=== PATIENT | female | born 1985 | race Caucasian/White ===

== ENCOUNTER 2023-06-13 20:32 | Outpatient (REF) | payer OTHER, SELFPAY ==
[2023-06-19 09:07] LABS: Age Gdln ACOG Testing Note (.); HPV Aptima Negative (Negative); IGP, Aptima HPV, rfx 16/18,45 Note (.)
== END 2023-06-13 20:33 | disposition home or self-care (01) ==
LOC: LAB 20:32
PROVIDERS: Visit Provider Physician Assistant
DX: Z01.419 Encounter for gynecological examination (general) (routine) without abnormal findings (principal)
CPT/HCPCS: 87624; G0145

== ENCOUNTER 2023-08-23 | Outpatient (REF) | payer OTHER, SELFPAY ==
--- OUTSIDE RECORDS SUMMARY | 2023-09-01 08:18 | XMS_ITS | CCD ---
Author Name Unknown Address [address] [place] [address] Organization [facility] Care Team Providers Care Or First Assist Registered Nurse Name Role Phone REGGIE, DR GARCIA Attending Unavailable MISC, DR GUSMAN Primary Care Unavailable KARASIK, DR GARCIA Consulting Unavailable KARASIK, DR GARCIA Admitting Unavailable KARASIK, DR GARCIA Admitting Unavailable KARASIK, DR GARCIA Attending Unavailable MISC, DR GUSMAN Primary Care Unavailable KARASIK, DR GARCIA Consulting Unavailable NELLJOSE Consulting Unavailable RAH PEREZ Consulting Unavailable KARASIK, DR GARCIA Admitting Unavailable KARASIK, DR GARCIA Attending Unavailable KARASIK, DR GARCIA Consulting Unavailable Bertha Guerrero Primary Care Physician MARCELLO HARDEN Attending Unavailable Leeanna Dahl Attending Unavailable VERN LE Attending Unavailable Vern Le Attending Provider [phone] Vern Le Attending Unavailable Vern Le Admitting Unavailable Allergies Allergy Classification Reported Allergen(s) Allergy Type Date of Onset Reaction(s) Facility (1 source) Latex Drug allergy (disorder) [facility] Repository (3 sources) Codeine; Translations: [codeine] Drug Allergy [facility] (3 sources) Penicillin; Translations: [penicillin] Drug Allergy [facility] Medications Current Medications Medication Drug Class(es) Dates Sig (Normalized) Sig (Original) azithromycin 500 mg oral tablet (1 source) Macrolide Antimicrobial Start: 05-29-2023 End: 06-03-2023 take 1 tablet by mouth once daily Zithromax 500 mg oral tablet 500 mg = 1 tab(s), Oral, Daily, X 5 day(s), # 5 tab(s), Refills(s) 0, Pharmacy: [facility] #[id number], 170, cm, 05/29/23 15:13:00 EDT, Height/Length Dosing, 75.8, kg, 05/29/23 15:13:00 EDT, Weight Dosing Start Date: 05/29/23 Stop Date: 06/03/23 Status: Ordered brompheniramine maleate 0.4 mg/ml / dextromethorphan hydrobromide 2 mg/ml / pseudoephedrine hydrochloride 6 mg/ml oral solution (1 source) alpha-Adrenergic Agonist, Uncompetitive K-yhrsti-G-aspartat e Receptor Antagonist, Sigma-1 Agonist Start: 09-21-2022 End: 09-28-2022 take 10 mL by mouth four times daily for cough and congestion Bromfed DM oral syrup 10 mL, Oral, QID for cough and congestion for 7 day(s), 240 mL, Refill(s) 0, [facility] #[id number], 165, cm, 09/21/22 13:09:00 EST, Height/Length Dosing, 76.6, kg, 09/21/22 13:09:00 EST, Weight Dosing Start Date: 09/21/22 Stop Date: 09/28/22 Status: Ordered ibuprofen 800 mg oral tablet (2 sources) Nonsteroidal Anti-inflammatory Drug Start: 12-28-2011 take 1 tablet by mouth three times daily as needed for pain ibuprofen 800 mg Tab 800 mg = 1 tab(s), Oral, TID, PRN for pain, # 30 tab(s), Refills(s) 0 Start Date: 12/28/11 Status: Ordered predniSONE 20 mg oral tablet (1 source) Start: 05-29-2023 End: 06-03-2023 take 1 tablet by mouth once daily predniSONE 20 mg Tab 20 mg = 1 tab(s), Oral, Daily, X 5 day(s), # 5 tab(s), Refills(s) 0, Pharmacy: [facility] #[id number], 170, cm, 05/29/23 15:13:00 EDT, Height/Length Dosing, 75.8, kg, 05/29/23 15:13:00 EDT, Weight Dosing Start Date: 05/29/23 Stop Date: 06/03/23 Status: Ordered SUMAtriptan 25 mg oral tablet (2 sources) Serotonin-1b and Serotonin-1d Receptor Agonist Start: 12-28-2011 take 1 tablet by mouth once daily Imitrex 25 mg Tab 25 mg = 1 tab(s), Oral, Daily, tab(s), Refills(s) 0 Start Date: 12/28/11 Status: Ordered Problems Active Problems Problem Classification Problem Date Documented Date Episodic/Chronic Acute and chronic tonsillitis (2 sources) Acute tonsillitis; Translations: [Acute tonsillitis, unspecified] Onset: 05-29-2023 Episodic Immunizations and screening for infectious disease (1 source) Encounter for screening for human papillomavirus (HPV); Translations: [ENC SCREENING HUMAN PAPILLOMAVIRUS] Onset: 12-15-2021 Episodic Other nutritional; endocrine; and metabolic disorders (1 source) Overweight in adulthood with body mass index of 25 or more but less than 30; Translations: [Body mass index (BMI) 28.0-28.9, adult] Onset: 09-21-2022 Episodic Other screening for suspected conditions (not mental disorders or infectious disease) (6 sources) Encounter for screening for malignant neoplasm of cervix; Translations: [No current problems or disability] Onset: 12-14-2021 Episodic Other upper respiratory infections (3 sources) Common cold; Translations: [Acute nasopharyngitis [common cold]] Onset: 09-21-2022 Episodic Unclassified (1 source) CONTACT W/AND (SUSP) EXPOS COVID-19; Translations: [CONTACT W/AND (SUSP) EXPOS COVID-19] Onset: 12-31-2020 Past or Other Problems Problem Classification Problem Date Documented Date Episodic/Chronic Complication of device; implant or graft (5 sources) Other specified complication of genitourinary prosthetic devices, implants and grafts, initial encounter; Translations: [Other mechanical complication of intrauterine contraceptive device, initial encounter] Onset: 12-28-2020 Episodic Results Test Name Value Interpretation Reference Range Facil [facility] 08-23-2023 L Specimen: [id number] Received: 08/24/23 Status: LAWRENCE Ugarte Num: [id number] Spec Type: Surgical Subm Dr: Vern Le Tissues: A Endometrium - Biopsy (EMB) Procedures: HE/2, Gross/Micro L4 Age/ Patient Sex Location Account Attending Physician Sommer Cerna 37/F LABELL [id number] Vern Le SPEC NUM: [id number] RECD: 08/24/23 STATUS: LAWRENCE UGARTE NUM: [id number] MARÍA: 08/23/23 DR: Vern Le ENTERED: 08/24/[address] [facility] [address]: Eddy,Lab SPEC TYPE: Surgical DEPT: BERT BUTCHER ORDERED: HE/2, Gross/Micro L4 ORDERED: HE/2, Gross/Micro L4 Pathological Diagnosis Endometrium, Curettage: Scanty specimen did not survive processing. Clinical Information Menorrhagia with regular cycles, abnormal uterine bleeding Gross Description Received in formalin labeled with the patient's name, date of and EM BX is scant white to translucent tissue stained with eosin and aggregating 2.0 x 0.6 by less than 0.1 cm. The specimen will questionably survive processing. Entirely submitted in one cassette labeled A1. CPT Codes 21573 ---- ---- Specimen: [id number] Received: 08/24/23 Status: LAWRENCE Ugarte Num: [id number] Spec Type: Surgical Subm Dr: Vern Le Tissues: A Endometrium - Biopsy (EMB) Procedures: HE/2, Gross/Micro L4 ---- Patient: Sommer Cerna [id number] (Continued) ---- Signed (signature on file) Danie Garcia MD 08/27/23 [id number] Family Medicine Office/Clini c Noteon 06-01-2023 Family Medicine Office/Clinic Note Chief Complaint EST sore throat HPI Staff 37 year old female presents with sore throat states she thinks she has strep and it started monday night cold chills sweats and lymph nodes are really tender Review of Systems PHQ Score Initial Depression Screen Score: 0 Physical Exam Vitals & Measurements HR: 80(Peripheral) BP: 130/80 SpO2: 99% HT: 67 in HT: 170 cm WT: 75.8 kg WT: 166.76 lb BMI: 26.23 Assessment/Plan 1. Tonsillitis (J03.90: Acute tonsillitis, unspecified) Ordered: azithromycin, 500 mg = 1 tab(s), Oral, Daily, X 5 day(s), # 5 tab(s), Refills(s) 0, Pharmacy: [facility] #[id number], 170, cm, 05/29/23 15:13:00 EDT, Height/Length Dosing, 75.8, kg, 05/29/23 15:13:00 EDT, Weight Dosing 2. Sore throat (J02.9: Acute pharyngitis, unspecified) Ordered: predniSONE, 20 mg = 1 tab(s), Oral, Daily, X 5 day(s), # 5 tab(s), Refills(s) 0, Pharmacy: [facility] #[id number], 170, cm, 05/29/23 15:13:00 EDT, Height/Length Dosing, 75.8, kg, 05/29/23 15:13:00 EDT, Weight Dosing Follow-up With When Contact Information Cesar KAUFFMAN, MARIOLA Verduzco Additional Instructions: Patient Education Sore Throat, Vqyn-ms-Aqsj Tonsillitis, Jmcs-rh-Dqzk Problem List/Past Medical History Ongoing Sore throat Tonsillitis Historical none Procedure/Surgical History none. Medications ibuprofen 800 mg Tab, 800 mg= 1 tab(s), Oral, TID, PRN, Not taking Imitrex 25 mg Tab, 25 mg= 1 tab(s), Oral, Daily, Not taking predniSONE 20 mg Tab, 20 mg= 1 tab(s), Oral, Daily Zithromax 500 mg oral tablet, 500 mg= 1 tab(s), Oral, Daily Allergies codeine penicillin Social History Tobacco - No Risk, 09/21/2022 Former smoker, quit more than 30 days ago Tobacco Use:. Never Smokeless Tobacco Use:. Cigarettes, 05/29/2023 Current, 01/14/2011 Family History Family history is unknown Immunizations Vaccine Date Status Comments influenza virus vaccine, inactivated - Not Given Patient Refuses SARS-CoV-2 mRNA (tozinameran 5y-11y) vac - Not Given Patient Refuses influenza virus vaccine, inactivated - Not Given Patient Refuses influenza virus vaccine, inactivated 06/09/2010 Recorded This chart was started in error. Initial chart was completed and signed on 05/29/2023. [place] Comment on above: Result Comment: Elec tronically Signed By: DERECK CHILDERS, MARCELLO\.br\Date and Time Signed: 06/01/23 15:45 EDT Family Medicine Office/Clini c Noteon 05-29-2023 Family Medicine Office/Clinic Note Chief Complaint EST sore throat HPI Staff 37 year old female presents with sore throat states she thinks she has strep and it started monday night cold chills sweats and lymph nodes are really tender History of Present Illness Reviewed and agree with above documented HPI by medical technical writer. Portions of this record may have been created with voice recognition artificial intelligence software, specifically Linksify, Scayl and or [email or web address]. Substitutions may have occurred due to the inherent limitations of voice recognition and artificial intelligence software. Patient is a 37-year-old female presented to [facility], for sore throat, enlarged tonsil, patient states symptoms started day night, 2 nights ago after returning home from work, patient states she has had a history of strep throat, and tonsillitis, symptoms are similar to tonsillitis, states no one at home has been positive for strep throat, not worry about COVID-19 she works at a [employer], where they are constantly being tested for COVID-19. Patient states she has negative results. Patient states she enlarged tonsils, more on the left than the right, has been able to eat and drink with some discomfort, has a sense of taste and smell intact without any difficulty swallowing. Patient denies any fevers, chills, nausea or vomiting, headache, dizziness, difficulty swallowing, cough, chest pain, shortness of breath, or weakness. Review of Systems PHQ Score Initial Depression Screen Score: 0 Physical Exam Vitals & Measurements HR: 80(Peripheral) BP: 130/80 SpO2: 99% HT: 67 in HT: 170 cm WT: 75.8 kg WT: 166.76 lb BMI: 26.23 General: Well developed, well nourished, in no acute distress, patient does not appear ill or septic, no respiratory disorders noted. Answers questions appropriately and in complete sentences, and follows commands appropriately. Head: Normocephalic/atraumat ic, no upper respiratory infection is noted. Eyes: Pupils equal, round, and reactive to light. Conjunctivae and sclerae normal, Ears: No deformity or lesion of external ear. Canals and TM appear normal bilaterally. TM?s intact, not inflamed, with normal light reflex. Hearing grossly normal to conversational speech Nose: No deformity, discharge, inflammation, or lesions Mouth: Mucous membranes moist. Normal oropharynx, and posterior pharynx with erythema and exudates, left tonsil larger than right tonsil, exudates, no peritonsillar abscess noted. Neck: Neck supple. No masses or palpable cervical nodes. Trachea midline. Lungs: Normal respiratory effort and clear to auscultation throughout, no wheezing, no rales Extremity: Patient is able to move all 4 extremities equally without pain or weakness. Neurologic: Grossly normal Skin: No rashes, ulcerations, or suspicious lesions Lymph Nodes: no lad Mental Status: alert, active Assessment/Plan 37-year-old female presented to [facility], for left tonsillitis, sore throat, symptoms started a few nights ago, history of tonsillitis strep throat, patient felt not to be swabbed for rapid strep throat, patient did appear ill but not septic, respiratory disorder or difficulty swallowing is noted on examination. Patient was given a prescription for Zithromax and prednisone, instructed take zxpt-pos-cajwaty Tylenol for any body aches, fevers, or headaches. Drink plenty water to stay hydrated. Declined a work excuse note. 1. Tonsillitis (J03.90: Acute tonsillitis, unspecified) See above Ordered: azithromycin, 500 mg = 1 tab(s), Oral, Daily, X 5 day(s), # 5 tab(s), Refills(s) 0, Pharmacy: [facility] #[id number], 170, cm, 05/29/23 15:13:00 EDT, Height/Length Dosing, 75.8, kg, 05/29/23 15:13:00 EDT, Weight Dosing 2. Sore throat (J02.9: Acute pharyngitis, unspecified) See above Ordered: predniSONE, 20 mg = 1 tab(s), Oral, Daily, X 5 day(s), # 5 tab(s), Refills(s) 0, Pharmacy: [facility] #[id number], 170, cm, 05/29/23 15:13:00 EDT, Height/Length Dosing, 75.8, kg, 05/29/23 15:13:00 EDT, Weight Dosing Follow-up With When Contact Information Cesar KAUFFMAN, MARIOLA Verduzco Additional Instructions: Patient Education Sore Throat, Fiqf-nk-Bwzc Tonsillitis, Qivn-iw-Zxyh Problem List/Past Medical History Ongoing Sore throat Tonsillitis Historical none Procedure/Surgical History none. Medications ibuprofen 800 mg Tab, 800 mg= 1 tab(s), Oral, TID, PRN, Not taking Imitrex 25 mg Tab, 25 mg= 1 tab(s), Oral, Daily, Not taking predniSONE 20 mg Tab, 20 mg= 1 tab(s), Oral, Daily Zithromax 500 mg oral tablet, 500 mg= 1 tab(s), Oral, Daily Allergies codeine penicillin Social History Tobacco - No Risk, 09/21/2022 Former smoker, quit more than 30 days ago Tobacco Use:. Never Smokeless Tobacco Use:. Cigarettes, 05/29/2023 Current, 01/14/2011 Family History Family history is unknown Immunizations Vaccine Date Status Comments influenza virus vaccine, inactivated - Not Given Beata (more content not included)... Normal [facility] Comment on above: Result Comment: Elec tronically Signed By: DERECK CHILDERS, MARCELLO\.rosalee\Date and Time Signed: 05/29/23 16:36 EDT Patient Educationon 05-29-20 Patient Education ENT Tonsillitis Tonsillitis is an infection of the throat. Tonsils are tissues in the back of your throat. This infection causes the tonsils to become red, tender, and swollen. What are the causes? Tonsillitis is caused by germs (bacteria or a virus). This condition can also occur when pieces of food and bacteria build up around the tonsils. Tonsillitis that is caused by germs can spread from person to person. What are the signs or symptoms? ? A sore throat. ? Trouble swallowing. ? White patches on the tonsils. ? Swollen tonsils. ? Fever. ? Headache. ? Tiredness. ? Not feeling hungry. ? Snoring during sleep when you did not snore before. ? Foul-smelling, yellowish-white pieces of material that you cough up or spit out. These can cause bad breath. How is this treated? ? Medicines. These can be given to treat pain, swelling, or fever. They can also be given to kill bacteria. ? Surgery to take out the tonsils. This is done if you have very bad infections that do not go away. Follow these instructions at home: Medicines ? Take gmou-umr-mohdnle and prescription medicines only as told by your doctor. ? If you were prescribed an antibiotic medicine, take it as told by your doctor. Do not stop taking the antibiotic even if you start to feel better. Eating and drinking ? Drink enough fluid to keep your pee (urine) pale yellow. ? While your throat is sore, eat soft or liquid foods, such as: ? Soup. ? Sherbet. ? Soft, warm cereals, such as oatmeal or hot wheat cereal. ? Drink warm fluids. ? Eat frozen ice pops. General instructions ? Rest as much as you can, and get plenty of sleep. ? Rinse your mouth often with salt water. ? To make salt water, dissolve ??1 tsp (3?6 g) of salt in 1 cup (237 mL) of warm water. ? Do not swallow the salt water. ? Wash your hands often with soap and water for at least 20 seconds. If there is no soap and water, use hand seo executive. ? Do not share cups, bottles, or other utensils until your symptoms are gone. ? Do not smoke or use any products that contain nicotine or tobacco. If you need help quitting, ask your doctor. ? Keep all follow-up visits. Contact a doctor if: ? You have large, tender lumps in your neck that are new. ? You have a fever that does not go away after 2?3 days. ? You have a rash. ? You cough up green, yellow-brown, or bloody fluid. ? You cannot swallow liquids or food for 24 hours. ? Only one of your tonsils is swollen. Get help right away if: ? You have any new symptoms such as: ? Vomiting. ? Very bad headache. ? Stiff neck. ? Chest pain. ? Trouble breathing or swallowing. ? You have very bad throat pain, and you also have drooling or voice changes. ? You have very bad pain that is not helped by medicine. ? You cannot fully open your mouth. ? You have redness, swelling, or very bad pain anywhere in your neck. Summary ? Tonsillitis is an infection of the throat. It causes your tonsils to be red, tender, and swollen. ? While your throat is sore, eat soft or liquid foods. ? Rinse your mouth often with salt water. ? Do not share cups, bottles, or other utensils until your symptoms are gone. This information is not intended to replace advice given to you by your health care provider. Make sure you discuss any questions you have with your health care provider. Document Revised: 12/16/2021 Document Reviewed: 12/16/2021 [employer] Patient Education ? 2022 [employer] Infectious Disease Sore Throat When you have a sore throat, your throat may feel: ? Tender. ? Burning. ? Irritated. ? Scratchy. ? Painful when you swallow. ? Painful when you talk. Many things can cause a sore throat, such as: ? An infection. ? Allergies. ? Dry air. ? Smoke or pollution. ? Radiation treatment for cancer. ? Gastroesophageal reflux disease (GERD). ? A tumor. A sore throat can be the first sign of another sickness. It can happen with other problems, like: ? Coughing. ? Sneezing. ? Fever. ? Swelling of the glands in the neck. Most sore throats go away without treatment. Follow these instructions at home: Medicines ? Take snyk-uxn-hjxdbgq and prescription medicines only as told by your doctor. ? Children often get sore throats. Do not give your child aspirin. ? Use throat sprays to soothe your throat as told by your health care provider. Managing pain To help with pain: ? Sip warm liquids, such as broth, herbal tea, or warm water. ? Eat or drink cold or frozen liquids, such as frozen ice pops. ? Rinse your mouth (gargle) with a salt water mixture 3?4 times a day or as needed. ? To make salt water, dissolve ??1 tsp (3?6 g) of salt in 1 cup (237 mL) of warm water. ? Do not swallow this mixture. ? Suck on hard candy or throat lozenges. ? Put a cool-mist humidifier in your bedroom at night. ? (more content not included)... Normal [facility] Ambulatory Visit Summaryon 0 09-21-2022 Ambulatory Visit Summary SOMMER CERNA Alphonse :1985 Visit Date:09/21/2022 Ambulatory Visit Instructions Your Diagnosis Acute nasopharyngitis BMI 28.0-28.9,adult Sore throat Your Care Team Attending Physician - Nabila DUBON, ISI, Leeanna Abbott Primary Care Physician - Bertha Guerrero MD This Is Your Medications List brompheniramine/dextro methorphan/PSE (Bromfed DM oral syrup) Contact prescribing physician if questions or concerns ibuprofen (ibuprofen 800 mg Tab) sumatriptan (Imitrex 25 mg Tab) Procedures Performed none. Discharge Vitals Temperature (Oral) 36.9 ?C Heart Rate (Peripheral) 87 Blood Pressure 136/86 Height 165 cm Height 65 in Weight 76.6 kg Weight 168.52 lb BMI 28.14 What to do next You Need to Schedule the Following Appointments Follow Up with Cesar KAUFFMAN, MARIOLA Verduzco When: Medications What How Much When Why Instructions New brompheniramine/ dextromethorphan/ PSE (Bromfed DM oral syrup) 10 Milliliter By Mouth 4 times a day as needed for for cough and congestion Acute nasopharyngitis Duration: 7 Days Pickup at [facility] #[id number] Unchanged ibuprofen (ibuprofen 800 mg Tab) 1 Tablets By Mouth 3 times a day as needed for for pain Contact prescribing physician if questions or concerns Unchanged sumatriptan (Imitrex 25 mg Tab) 1 Tablets By Mouth Every day Contact prescribing physician if questions or concerns Pharmacy Information [facility] #[id number]: [address], [place] [phone] Medications and Immunizations Administered Not Given influenza virus vaccine, inactivated, Patient Refuses Allergies codeine penicillin Problems Historical - Any problem that you are no longer receiving treatment for. none Education Materials Upper Respiratory Infection, Adult An upper respiratory infection (URI) is a common viral infection of the nose, throat, and upper air passages that lead to the lungs. The most common type of URI is the common cold. URIs usually get better on their own, without medical treatment. What are the causes? A URI is caused by a virus. You may catch a virus by: ? Breathing in droplets from an infected person's cough or sneeze. ? Touching something that has been exposed to the virus (contaminated) and then touching your mouth, nose, or eyes. What increases the risk? You are more likely to get a URI if: ? You are very young or very old. ? It is alison or winter. ? You have close contact with others, such as at a daycare, school, or health care facility. ? You smoke. ? You have long-term (chronic) heart or lung disease. ? You have a weakened disease-fighting (immune) system. ? You have nasal allergies or asthma. ? You are experiencing a lot of stress. ? You work in an area that has poor air circulation. ? You have poor nutrition. What are the signs or symptoms? A URI usually involves some of the following symptoms: ? Runny or stuffy (congested) nose. ? Sneezing. ? Cough. ? Sore throat. ? Headache. ? Fatigue. ? Fever. ? Loss of appetite. ? Pain in your forehead, behind your eyes, and over your cheekbones (sinus pain). ? Muscle aches. ? Redness or irritation of the eyes. ? Pressure in the ears or face. How is this diagnosed? This condition may be diagnosed based on your medical history and symptoms, and a physical exam. Your health care provider may use a cotton swab to take a mucus sample from your nose (nasal swab). This sample can be tested to determine what virus is causing the illness. How is this treated? URIs usually get better on their own within 7?10 days. You can take steps at home to relieve your symptoms. Medicines cannot cure URIs, but your health care provider may recommend certain medicines to help relieve symptoms, such as: ? Lfci-ceb-xfoatym cold medicines. ? Cough suppressants. Coughing is a type of defense against infection that helps to clear the respiratory system, so take these medicines only as recommended by your health care provider. ? Fever-reducing medicines. Follow these instructions at home: Activity ? Rest as needed. ? If you have a fever, stay home from work or school until your fever is gone or until your health care provider says you are no longer contagious. Your health care provider may have you wear a face mask to prevent your infection from spreading. Relieving symptoms ? Gargle with a salt-water mixture 3?4 times a day or as needed. To make a salt-water mixture, completely dissolve ??1 tsp of salt in 1 cup of warm water. ? Use a cool-mist humidifier to add moisture to the air. This can help you breathe more easily. Eating and drinking ? Drink enough fluid to keep your urine pale yellow. ? Eat soups and other clear broths. General instructions ? Take gpmt-rpr-xgbbbwh and prescription medicines only (more content not included)... 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 Symptoms started- Monday, x 5 days Headache- no Body aches- yes fatigue - yes Earache- yes bilat Runny/stuffy nose- yes Problem with Smell- no Problem with Taste-no Sore throat- yes, PND, worse throughout the day Cough- yes, moist, non productive Scratchy tickly throat- yes Chest symptoms- no SOB- no Lung Hx asthma, bronchitis, chest colds- no Fever/chills- yes- 100.4, yesterday Nausea/ vomiting- no GI Symptoms- no appetite- decreased due to pain tolerating fluid urinating normal amounts Sick/ COVID-19- yes kids were sick - no strep, lasted 3 days Treatments- Mucinex - minimal improvement History of Present Illness I have reviewed and verified the staff HPI to be accurate for this encounter. Review of Systems PHQ Score Initial Depression Screen Score: 0 Physical Exam Vitals & Measurements T: 36.9 ?C(Oral) HR: 87(Peripheral) BP: 136/86 SpO2: 97% HT: 65 in HT: 165 cm WT: 76.6 kg WT: 168.52 lb BMI: 28.14 General: Well developed, well nourished, in no acute distress Ears: No deformity or lesion of external ear. Canals and TM appear normal bilaterally. TM?s intact, not inflamed, with normal light reflex. Hearing grossly normal to conversational speech Nose: mild nasal mucosa inflammation and edema Mouth: Mucous membranes moist. Normal oropharynx, and posterior pharynx without lesions or exudates. Tongue normal mild erythema of the posterior pharynx, tonsils 1+. Neck: shotty anterior cervical nodes bilaterally Lungs: Normal respiratory effort and clear to auscultation Cardio: regular rate and rhythm, no murmur Mental Status: Alert and oriented x3. Normal mood and affect Assessment/Plan 1. Acute nasopharyngitis (J00: Acute nasopharyngitis [common cold]) Rapid strep testing in office negative. Discussed exam and hx are consistent with viral illness. Advised of typical duration. Discussed antibiotics unfortunately do not treat viral illnesses, it will take time to run course- usually 7-14 days. Fluids/rest encouraged, PRN tylenol/ibuprofen for any pain. May use Bromfed for symptomatic tx. Follow up with PCP if not improving over next 5-7 days or significantly worsening symptoms. Patient verbalized understanding of tx plan. Ordered: brompheniramine/dextro methorphan/PSE, 10 mL, Oral, QID for cough and congestion for 7 day(s), 240 mL, Refill(s) 0, [id number], 165, cm, 09/21/22 13:09:00 EST, Height/Length Dosing, 76.6, kg, 09/21/22 13:09:00 EST, Weight Dosing 2. BMI 28.0-28.9,adult (Z68.28: Body mass index [BMI] 28.0-28.9, adult) The standard range for ages 18 and older is >=18.5 and < 25 kg/m2. Your BMI today was above this range, this falls in the overweight to obese category and there are medical benefits to weight loss. We can offer counselling, referral, and/or medical support in addressing this problem. Your BMI and weight management will be followed at subsequent visits. Ordered: Body Mass Index (BMI) documented 3008F Sore throat (J02.9: Acute pharyngitis, unspecified) Ordered: Rapid Strep POC 34490 Follow-up With When Contact Information Cesar KAUFFMAN, MARIOLA Verduzco Additional Instructions: Patient Education Upper Respiratory Infection, Adult BMI for Adults Problem List/Past Medical History Ongoing No qualifying data Historical none Procedure/Surgical History none. Medications Bromfed DM oral syrup, 10 mL, Oral, QID, PRN ibuprofen 800 mg Tab, 800 mg= 1 tab(s), Oral, TID, PRN, Not taking Imitrex 25 mg Tab, 25 mg= 1 tab(s), Oral, Daily, Not taking Allergies codeine penicillin Social History Tobacco - No Risk, 09/21/2022 Former smoker, quit more than 30 days ago Tobacco Use:. Never Smokeless Tobacco Use:. Cigarettes, 09/21/2022 Current, 01/14/2011 Family History Family history is unknown Immunizations Vaccine Date Status Comments influenza virus vaccine, inactivated - Not Given Patient Refuses Lab Results Ambulatory Point of Care Results Rapid Strep POC Result: Negative (09/21/22 13:35:00) Normal [facility] Comment on above: Result Comment: Elec tronically Signed By: ISI Dahl APRN, [place] X\.rosalee\Date and Time Signed: 09/21/22 13:39 EST Patient Educationon 09-21-19 Patient Education Infectious Disease Upper Respiratory Infection, Adult An upper respiratory infection (URI) is a common viral infection of the nose, throat, and upper air passages that lead to the lungs. The most common type of URI is the common cold. URIs usually get better on their own, without medical treatment. What are the causes? A URI is caused by a virus. You may catch a virus by: ? Breathing in droplets from an infected person's cough or sneeze. ? Touching something that has been exposed to the virus (contaminated) and then touching your mouth, nose, or eyes. What increases the risk? You are more likely to get a URI if: ? You are very young or very old. ? It is alison or winter. ? You have close contact with others, such as at a daycare, school, or health care facility. ? You smoke. ? You have long-term (chronic) heart or lung disease. ? You have a weakened disease-fighting (immune) system. ? You have nasal allergies or asthma. ? You are experiencing a lot of stress. ? You work in an area that has poor air circulation. ? You have poor nutrition. What are the signs or symptoms? A URI usually involves some of the following symptoms: ? Runny or stuffy (congested) nose. ? Sneezing. ? Cough. ? Sore throat. ? Headache. ? Fatigue. ? Fever. ? Loss of appetite. ? Pain in your forehead, behind your eyes, and over your cheekbones (sinus pain). ? Muscle aches. ? Redness or irritation of the eyes. ? Pressure in the ears or face. How is this diagnosed? This condition may be diagnosed based on your medical history and symptoms, and a physical exam. Your health care provider may use a cotton swab to take a mucus sample from your nose (nasal swab). This sample can be tested to determine what virus is causing the illness. How is this treated? URIs usually get better on their own within 7?10 days. You can take steps at home to relieve your symptoms. Medicines cannot cure URIs, but your health care provider may recommend certain medicines to help relieve symptoms, such as: ? Vbux-ggq-iieokxk cold medicines. ? Cough suppressants. Coughing is a type of defense against infection that helps to clear the respiratory system, so take these medicines only as recommended by your health care provider. ? Fever-reducing medicines. Follow these instructions at home: Activity ? Rest as needed. ? If you have a fever, stay home from work or school until your fever is gone or until your health care provider says you are no longer contagious. Your health care provider may have you wear a face mask to prevent your infection from spreading. Relieving symptoms ? Gargle with a salt-water mixture 3?4 times a day or as needed. To make a salt-water mixture, completely dissolve ??1 tsp of salt in 1 cup of warm water. ? Use a cool-mist humidifier to add moisture to the air. This can help you breathe more easily. Eating and drinking ? Drink enough fluid to keep your urine pale yellow. ? Eat soups and other clear broths. General instructions ? Take djad-epy-atizgmu and prescription medicines only as told by your health care provider. These include cold medicines, fever reducers, and cough suppressants. ? Do not use any products that contain nicotine or tobacco, such as cigarettes and e-cigarettes. If you need help quitting, ask your health care provider. ? Stay away from secondhand smoke. ? Stay up to date on all immunizations, including the yearly (annual) flu vaccine. ? Keep all follow-up visits as told by your health care provider. This is important. How to prevent the spread of infection to others ? URIs can be passed from person to person (are contagious). To prevent the infection from spreading: ? Wash your hands often with soap and water. If soap and water are not available, use hand seo executive. ? Avoid touching your mouth, face, eyes, or nose. ? Cough or sneeze into a tissue or your sleeve or elbow instead of into your hand or into the air. Contact a health care provider if: ? You are getting worse instead of better. ? You have a fever or chills. ? Your mucus is brown or red. ? You have yellow or brown discharge coming from your nose. ? You have pain in your face, especially when you bend forward. ? You have swollen neck glands. ? You have pain while swallowing. ? You have white areas in the back of your throat. Get help right away if: ? You have shortness of breath that gets worse. ? You have severe or persistent: ? Headache. ? Ear pain. ? Sinus pain. ? Chest pain. ? You have chronic lung disease along with any of the following: ? Wheezing. ? Prolonged cough. ? Coughing up blood. ? A change in your usual mucus. ? You have a stiff neck. ? You have changes in your: ? Vision. ? Hearing. ? Thinking. ? Mood. Summary ? An upper respiratory infection (URI) is a common infecti (more content not included)... Normal [facility] PAP ACOG PANEL 2: 30 to 65on 12-20-2021 . . Normal [facility] Comment on above: Result Comment: Perf ormed at: WB Performed By: #### [id number] #### [facility] [address] [place] [address] Dr. Victoriano Baker Age Gdln ACOG Testing 30-65 Normal [facility] Comment on above: Performed By: #### [id number] #### [facility] [address] [address] [address] Victoriano Baker DIAGNOSIS: Comment Normal [facility] Comment on above: Result Comment: NEGA TIVE FOR INTRAEPITHELIAL LESION OR MALIGNANCY. Performed at: WB Performed By: #### [id number] #### [facility] [address] [address] [address] Victoriano Baker HPV Aptima Negative Normal [facility] Comment on above: Result Comment: This nucleic acid amplification test detects fourteen high-risk HPV types (16,18,31,33,35,39,45,51,52,56,58,59,66,68) without differentiation. Performed at: =G Performed By: #### [id number] #### [facility] [address] [address] [address] Victoriano Baker Methodology: Comment Normal [facility] Comment on above: Result Comment: This liquid based ThinPrep(R) pap test was screened with the use of an image guided system. Performed at: WB Performed By: #### [id number] #### [facility] [address] [address] [address] Victoriano Baker Note: Comment Normal [facility] Comment on above: Result Comment: The Pap smear is a screening test designed to aid in the detection of premalignant and malignant conditions of the uterine cervix. It is not a diagnostic procedure and should not be used as the sole means of detecting cervical cancer. Both false-positive and false-negative reports do occur. . Performed at: WB Performed By: #### [id number] #### [facility] [address] [place] [address] Dr. Victoriano Baker Performed by: Comment Normal [facility] Comment on above: Result Comment: Lashonda Ha, Parallel Computing Software Engineer (ASCP) Performed at: WB Performed By: #### [id number] #### [facility] [address] [place] [address] Dr. Victoriano Baker Specimen adequacy: Comment Normal [facility] Comment on above: Result Comment: Sati sfactory for evaluation. Endocervical and/or squamous metaplastic cells (endocervical component) are present. Performed at: WB Performed By: #### [id number] #### [facility] [address] [place] [address] Dr. Victoriano Baker URon 12-28-2020 , QUAL Negative Normal NEGATIVE [facility] Comment on above: Performed By: #### P REGU #### [facility] [address] [place] [address] Lenin Novoa Covid-19 PCR (CVDTB)on 12-06 SARS-CoV-2 (COVID-19) RNA JENI+probe Ql (Unsp spec) Not detected Normal NOT DETECTED [facility] Comment on above: Result Comment: This test is not yet approved or cleared by the [place] FDA. When there are no FDA-approved or cleared tests available, and other criteria are met, FDA can make tests available under an emergency access mechanism called an Emergency Use Authorization (EUA). The EUA for this test is supported by the Brush Polisher of Health and Human Service's (HHS's) declaration that circumstances exist to justify the emergency use of in vitro diagnostics for the detection and/or diagnosis of the virus that causes COVID-19. This EUA will remain in effect (meaning this test can be used) for the duration of the COVID-19 declaration justifying emergency of IVDs, unless it is terminated or revoked by FDA (after which the test may no longer be used). When diagnostic testing is negative, the possibility of a false negative should be considered in the context of a patient's recent exposures and the presence of clinical signs and symptoms consistent with SARS-CoV-2. Performed By: #### C [facility] #### [facility] [address] [address] Lenin Novoa Vital Signs Date Time Vital Sign Value Performing Clinician Facility 05-29-2023 15:10-0400 Blood Pressure Location [facility] 05-29-2023 15:10-0400 Diastolic blood pressure 80 mm[Hg] [facility] 05-29-2023 15:10-0400 Heart rate 80 /min [facility] 05-29-2023 15:10-0400 SaO2% (BldA) [Mass fraction] 99 % [facility] 05-29-2023 15:10-0400 Systolic blood pressure 130 mm[Hg] NAB[facility] 09-21-2022 13:06-0500 Blood Pressure Location [facility] 09-21-2022 13:06-0500 Body temperature 98.42 [degF] [facility]anna [employer] [facility] 09-21-2022 13:06-0500 Diastolic blood pressure 86 mm[Hg] [facility] 09-21-2022 13:06-0500 Heart rate 87 /min [place] [employer] [facility] 09-21-2022 13:06-0500 SaO2% (BldA) [Mass fraction] 97 % Leeanna Orzech [facility] 09-21-2022 13:06-0500 Systolic blood pressure 136 mm[Hg] Leeanna Orzech [facility] Encounters Encounter Date Encounter Type Care Provider Facility Start: 08-24-2023 End: 08-24-2023 ambulatory Vern Rey Facility:[facility] Start: 08-24-2023 End: 08-24-2023 ambulatory Vern Rey Work Phone: [facility] Work Phone: Start: 08-24-2023 End: 08-24-2023 Departed Referred Vern Rey Work Phone: [facility] Start: 08-23-2023 End: 08-23-2023 ambulatory VERN REY Not Available Start: 05-29-2023 ambulatory MARCELLO HARDEN Facilit y:[facility] [place] Start: 05-29-2023 ambulatory MARCELLO HARDEN Facilit y:[facility] [place] Start: 05-29-2023 End: 05-29-2023 Patient encounter procedure MARCELLO HARDEN [facility] Start: 09-21-2022 End: 09-22-2022 ambulatory Leeanna X Orzech Facility:[facility] [place] Start: 09-21-2022 End: 09-21-2022 Patient encounter procedure Leeanna X Orzech [facility] Start: 12-14-2021 End: 12-14-[address] RADHA PAREDES Facility:[facility] Start: 12-31-2020 Encounter for preprocedural laboratory examination [facility] RADHA [facility] Start: 12-28-2020 End: 12-28-[address] RADHA PAREDES Facility:[facility] Start: 12-25-2020 End: 12-26-[address] RADHA PAREDES Facility:[facility] Start: 12-25-2020 End: 12-26-2020 Encounter for preprocedural laboratory examination DR RADHA PAREDES Facility:[facility] Immunizations Immunization Date Immunization Notes Care Provider Corrine arlet 06-09-2010 influenza virus vaccine, unspecified formulation MARCELLO HARDEN [facility] NEGATED: Highlighted row has not occurred!05-29-2023 influenza virus vaccine, unspecified formulation [facility] NEGATED: Highlighted row has not occurred!05-29-2023 SARS-CoV-2 mRNA (tozinameran 5y-11y) vaccine [facility] NEGATED: Highlighted row has not occurred!09-21-2022 influenza virus vaccine, unspecified formulation Leeanna Dahl [facility] Payers Date Payer Category Payer Self-pay 2022 Unknown [id number] 1985 Unknown [id number] 2.16.84 [id number] 1987 Unknown [id number] 2.16.84 [id number] 1987 Unknown [id number] 2.16.84 [id number] 1987 Unknown [id number] 2.16.8 [id number] 1987 Unknown [id number] 2.16.8 [id number] 1987 Unknown [id number] 2.16.84 [id number] 1959 Unknown [id number] Medicaid [employer] [id number] Unknown [id number] 2.16.8 [id number] Social History Date Type Detail Facility Start: 09-21-2022 End: 05-29-2023 Tobacco smoking status Ex-smoker (finding) [facility] Tobacco smoking status Never [facility] Sex Assigned At Female [facility] Start: 1985 Sex Assigned At Female [facility] Functional Status Date Assessment Result Facility 05-29-2023 Functional Status N/A [facility] 09-21-2022 Functional Status N/A [facility] Hospital Discharge instructions 05-29-2023 Note Date & Type Note Facility 05-29-2023 Hospital Discharg e instructions Patient Education 05/29/2023 16:36:14 Sore Throat, Strq-ya-Enzl Sore Throat When you have a sore throat, your throat may feel: Tender. Burning. Irritated. Scratchy. Painful when you swallow. Painful when you talk. Many things can cause a sore throat, such as: An infection. Allergies. Dry air. Smoke or pollution. Radiation treatment for cancer. Gastroesophageal reflux disease (GERD). A tumor. A sore throat can be the first sign of another sickness. It can happen with other problems, like: Coughing. Sneezing. Fever. Swelling of the glands in the neck. Most sore throats go away without treatment. Follow these instructions at home: Medicines Take yfsx-msl-gyyihrr and prescription medicines only as told by your doctor. Children often get sore throats. Do not give your child aspirin. Use throat sprays to soothe your throat as told by your health care provider. Managing pain To help with pain: Sip warm liquids, such as broth, herbal tea, or warm water. Eat or drink cold or frozen liquids, such as frozen ice pops. Rinse your mouth (gargle) with a salt water mixture 3 4 times a day or as needed. ?To make salt water, dissolve 1 tsp (3 6 g) of salt in 1 cup (237 mL) of warm water. ?Do not swallow this mixture. Suck on hard candy or throat lozenges. Put a cool-mist humidifier in your bedroom at night. Sit in the bathroom with the door closed for 5 10 minutes while you run hot water in the shower. General instructions Do not smoke or use any products that contain nicotine or tobacco. If you need help quitting, ask your doctor. Get plenty of rest. Drink enough fluid to keep your pee (urine) pale yellow. Wash your hands often for at least 20 seconds with soap and water. If soap and water are not available, use hand seo executive. Contact a doctor if: You have a fever for more than 2 3 days. You keep having symptoms for more than 2 3 days. Your throat does not get better in 7 days. You have a fever and your symptoms suddenly get worse. Your child who is 3 months to 3 years old has a temperature of 102.2 F (39 C) or higher. Get help right away if: You have trouble breathing. You cannot swallow fluids, soft foods, or your spit. You have swelling in your throat or neck that gets worse. You feel like you may vomit (nauseous) and this feeling lasts a long time. You cannot stop vomiting. These symptoms may be an emergency. Get help right away. Call your local emergency services (911 in the [place] Do not wait to see if the symptoms will go away. Do not drive yourself to the hospital. Summary A sore throat is a painful, burning, irritated, or scratchy throat. Many things can cause a sore throat. Take ngka-ymo-paembwz medicines only as told by your doctor. Get plenty of rest. Drink enough fluid to keep your pee (urine) pale yellow. Contact a doctor if your symptoms get worse or your sore throat does not get better within 7 days. This information is not intended to replace advice given to you by your health care provider. Make sure you discuss any questions you have with your health care provider. Document Revised: 10/20/2021 Document Reviewed: 10/20/2021 [employer] Patient Education 2022 [employer] 05/29/2023 16:36:09 Tonsillitis, Dfih-sw-Yxgm Tonsillitis Tonsillitis is an infection of the throat. Tonsils are tissues in the back of your throat. This infection causes the tonsils to become red, tender, and swollen. What are the causes? Tonsillitis is caused by germs (bacteria or a virus). This condition can also occur when pieces of food and bacteria build up around the tonsils. Tonsillitis that is caused by germs can spread from person to person. What are the signs or symptoms? A sore throat. Trouble swallowing. White patches on the tonsils. Swollen tonsils. Fever. Headache. Tiredness. Not feeling hungry. Snoring during sleep when you did not snore before. Foul-smelling, yellowish-white pieces of material that you cough up or spit out. These can cause bad breath. How is this treated? Medicines. These can be given to treat pain, swelling, or fever. They can also be given to kill bacteria. Surgery to take out the tonsils. This is done if you have very bad infections that do not go away. Follow these instructions at home: Medicines Take odkr-ybf-cekinvb and prescription medicines only as told by your doctor. If you were prescribed an antibiotic medicine, take it as told by your doctor. Do not stop taking the antibiotic even if you start to feel better. Eating and drinking Drink enough fluid to keep your pee (urine) pale yellow. While your throat is sore, eat soft or liquid foods, such as: ?Soup. ?Sherbet. ?Soft, warm cereals, such as oatmeal or hot wheat cereal. Drink warm fluids. Eat frozen ice pops. General instructions Rest as much as you can, and get plenty of sleep. Rinse your mouth often with salt water. ?To make salt water, dissolve 1 tsp (3 6 g) of salt in 1 cup (237 mL) of warm water. ?Do not swallow the salt water. Wash your hands often with soap and water for at least 20 seconds. If there is no soap and water, use hand seo executive. Do not share cups, bottles, or other utensils until your symptoms are gone. Do not smoke or use any products that contain nicotine or tobacco. If you need help quitting, ask your doctor. Keep all follow-up visits. Contact a doctor if: You have large, tender lumps in your neck that are new. You have a fever that does not go away after 2 3 days. You have a rash. You cough up green, yellow-brown, or bloody fluid. You cannot swallow liquids or food for 24 hours. Only one of your tonsils is swollen. Get help right away if: You have any new symptoms such as: ?Vomiting. ?Very bad headache. ?Stiff neck. ?Chest pain. ?Trouble breathing or swallowing. You have very bad throat pain, and you also have drooling or voice changes. You have very bad pain that is not helped by medicine. You cannot fully open your mouth. You have redness, swelling, or very bad pain anywhere in your neck. Summary Tonsillitis is an infection of the throat. It causes your tonsils to be red, tender, and swollen. While your throat is sore, eat soft or liquid foods. Rinse your mouth often with salt water. Do not share cups, bottles, or other utensils until your symptoms are gone. This information is not intended to replace advice given to you by your health care provider. Make sure you discuss any questions you have with your health care provider. Document Revised: 12/16/2021 Document Reviewed: 12/16/2021 [employer] Patient Education 2022 [employer] Follow Up Care 05/29/2023 14:00:55 With:Cesar KAUFFMAN, MARIOLA Verduzco Address:Unknown When: Unknown [facility] Hospital Discharge instructions 09-21-2022 Note Date & Type Note Facility 09-21-2022 Hospital Discharg e instructions Patient Education 09/21/2022 13:39:04 Upper Respiratory Infection, Adult Upper Respiratory Infection, Adult An upper respiratory infection (URI) is a common viral infection of the nose, throat, and upper air passages that lead to the lungs. The most common type of URI is the common cold. URIs usually get better on their own, without medical treatment. What are the causes? A URI is caused by a virus. You may catch a virus by: Breathing in droplets from an infected person's cough or sneeze. Touching something that has been exposed to the virus (contaminated) and then touching your mouth, nose, or eyes. What increases the risk? You are more likely to get a URI if: You are very young or very old. It is alison or winter. You have close contact with others, such as at a daycare, school, or health care facility. You smoke. You have long-term (chronic) heart or lung disease. You have a weakened disease-fighting (immune) system. You have nasal allergies or asthma. You are experiencing a lot of stress. You work in an area that has poor air circulation. You have poor nutrition. What are the signs or symptoms? A URI usually involves some of the following symptoms: Runny or stuffy (congested) nose. Sneezing. Cough. Sore throat. Headache. Fatigue. Fever. Loss of appetite. Pain in your forehead, behind your eyes, and over your cheekbones (sinus pain). Muscle aches. Redness or irritation of the eyes. Pressure in the ears or face. How is this diagnosed? This condition may be diagnosed based on your medical history and symptoms, and a physical exam. Your health care provider may use a cotton swab to take a mucus sample from your nose (nasal swab). This sample can be tested to determine what virus is causing the illness. How is this treated? URIs usually get better on their own within 7 10 days. You can take steps at home to relieve your symptoms. Medicines cannot cure URIs, but your health care provider may recommend certain medicines to help relieve symptoms, such as: Neix-oku-banompo cold medicines. Cough suppressants. Coughing is a type of defense against infection that helps to clear the respiratory system, so take these medicines only as recommended by your health care provider. Fever-reducing medicines. Follow these instructions at home: Activity Rest as needed. If you have a fever, stay home from work or school until your fever is gone or until your health care provider says you are no longer contagious. Your health care provider may have you wear a face mask to prevent your infection from spreading. Relieving symptoms Gargle with a salt-water mixture 3 4 times a day or as needed. To make a salt-water mixture, completely dissolve 1 tsp of salt in 1 cup of warm water. Use a cool-mist humidifier to add moisture to the air. This can help you breathe more easily. Eating and drinking Drink enough fluid to keep your urine pale yellow. Eat soups and other clear broths. General instructions Take mbns-nas-omwqsai and prescription medicines only as told by your health care provider. These include cold medicines, fever reducers, and cough suppressants. Do not use any products that contain nicotine or tobacco, such as cigarettes and e-cigarettes. If you need help quitting, ask your health care provider. Stay away from secondhand smoke. Stay up to date on all immunizations, including the yearly (annual) flu vaccine. Keep all follow-up visits as told by your health care provider. This is important. How to prevent the spread of infection to others URIs can be passed from person to person (are contagious). To prevent the infection from spreading: ?Wash your hands often with soap and water. If soap and water are not available, use hand seo executive. ?Avoid touching your mouth, face, eyes, or nose. ?Cough or sneeze into a tissue or your sleeve or elbow instead of into your hand or into the air. Contact a health care provider if: You are getting worse instead of better. You have a fever or chills. Your mucus is brown or red. You have yellow or brown discharge coming from your nose. You have pain in your face, especially when you bend forward. You have swollen neck glands. You have pain while swallowing. You have white areas in the back of your throat. Get help right away if: You have shortness of breath that gets worse. You have severe or persistent: ?Headache. ?Ear pain. ?Sinus pain. ?Chest pain. You have chronic lung disease along with any of the following: ?Wheezing. ?Prolonged cough. ?Coughing up blood. ?A change in your usual mucus. You have a stiff neck. You have changes in your: ?Vision. ?Hearing. ?Thinking. ?Mood. Summary An upper respiratory infection (URI) is a common infection of the nose, throat, and upper air passages that lead to the lungs. A URI is caused by a virus. URIs usually get better on their own within 7 10 days. Medicines cannot cure URIs, but your health care provider may recommend certain medicines to help relieve symptoms. This information is not intended to replace advice given to you by your health care provider. Make sure you discuss any questions you have with your health care provider. Document Released: 01/17/2002 Document Revised: 08/01/2019 Document Reviewed: 03/09/2018 [employer] 2020 [employer]. 09/21/2022 13:39:03 BMI for Adults BMI for Adults Body mass index (BMI) is a number that is calculated from a person's weight and height. BMI may help to estimate how much of a person's weight is composed of fat. BMI can help identify those who may be at higher risk for certain medical problems. How is BMI used with adults? BMI is used as a screening tool to identify possible weight problems. It is used to check whether a person is obese, overweight, healthy weight, or underweight. How is BMI calculated? BMI measures your weight and compares it to your height. This can be done either in [place] or metric measurements. Note that charts are available to help you find your BMI quickly and easily without having to do these calculations yourself. To calculate your BMI in [place] measurements, your health care provider will: 1.Measure your weight in pounds (lb). 2.Multiply the number of pounds by 703. For example, for a person who weighs 180 lb, multiply that number by 703, which equals 126,540. 3.Measure your height in inches (in). Then multiply that number by itself to get a measurement called inches squared. For example, for a person who is 70 in tall, the inches squared measurement is 70 in x 70 in, which equals 4900 inches squared. 4.Divide the total from Step 2 (number of lb x 703) by the total from Step 3 (inches squared): 126,540 4900 = 25.8. This is your BMI. To calculate your BMI in metric measurements, your health care provider will: 1.Measure your weight in kilograms (kg). 2.Measure your height in meters (m). Then multiply that number by itself to get a measurement called meters squared. For example, for a person who is 1.75 m tall, the meters squared measurement is 1.75 m x 1.75 m, which is equal to 3.1 meters squared. 3.Divide the number of kilograms (your weight) by the meters squared number. In this example: 70 3.1 = 22.6. This is your BMI. How is BMI interpreted? To interpret your results, your health care provider will use BMI charts to identify whether you are underweight, normal weight, overweight, or obese. The following guidelines will be used: Underweight: BMI less than 18.5. Normal weight: BMI between 18.5 and 24.9. Overweight: BMI between 25 and 29.9. Obese: BMI of 30 and above. Please note: Weight includes both fat and muscle, so someone with a muscular build, such as an athlete, may have a BMI that is higher than 24.9. In cases like these, BMI is not an accurate measure of body fat. To determine if excess body fat is the cause of a BMI of 25 or higher, further assessments may need to be done by a health care provider. BMI is usually interpreted in the same way for men and women. Why is BMI a useful tool? BMI is useful in two ways: Identifying a weight problem that may be related to a medical condition, or that may increase the risk for medical problems. Promoting lifestyle and diet changes in order to reach a healthy weight. Summary Body mass index (BMI) is a number that is calculated from a person's weight and height. BMI may help to estimate how much of a person's weight is composed of fat. BMI can help identify those who may be at higher risk for certain medical problems. BMI can be measured using [place] measurements or metric measurements. To interpret your results, your health care provider will use BMI charts to identify whether you are underweight, normal weight, overweight, or obese. This information is not intended to replace advice given to you by your health care provider. Make sure you discuss any questions you have with your health care provider. Document Released: 04/04/2005 Document Revised: 07/06/2018 Document Reviewed: 06/06/2018 [employer] 2020 [employer]. Follow Up Care 09/21/2022 12:25:29 With:Cesar KAUFFMAN, MARIOLA Verduzco Address:Unknown When: Unknown [facility] Evaluation + Plan note Note Date & Type Note Facility Evaluation + Plan note No data available for this section [facility] Evaluation note Note Date & Type Note Facility [facility] Progress note Note Date & Type Note Facility Progress note No data available for this section [facility] Summary Purpose Family History No Family History Records Found No data available for this section No Family History Records FoundNo Family History Records FoundNo Family History Records Found Advance Directives No Advanced Directives Records FoundNo Advanced Directives Records FoundNo Advanced Directives Records FoundNo Advanced Directives Records Found Additional Source Comments INFORMATION SOURCE (unrecogn ized section and content) DATE CREATED AUTHOR 12/23/2021 [facility] DATE CREATED AUTHOR AUTHOR'S ORGANIZ ATION 06/03/2023 Iraheta Magoffin [facility] DATE CREATED AUTHOR AUTHOR'S ORGANIZ ATION 08/24/2023 [facility] DATE CREATED AUTHOR AUTHOR'S ORGANIZ ATION 08/27/2023 [facility] Patient Care team informatio n (unrecognized section and content) Team Status: Inactive Member Role Status Dates Vern Le Attending Provider Active Start: Mac huang 2023 End: August 24, 2023 Goals (unrecognized section and content) Goals may be documented in a n alternate section FOR RECORDS PERTAINING TO PATIENTS WHO ARE OR HAVE BEEN ENROLLED IN A CHEMICAL DEPENDENCY/SUBSTANCEABUSE PROGRAM, SOME INFORMATION MAY BE OMITTED. This clinical summary was aggregated from multiple sources. Caution should be exercised in using it in the provision of clinical care. This summary normalizes information from multiple sources, and as a consequence, information in this document may materially change the coding, format and clinical context of patient data. In addition, data may be omitted in some cases. CLINICAL DECISIONS SHOULD BE BASED ON THE PRIMARY CLINICAL RECORDS. [facility]. provides no warranty or guarantee of the accuracy or completeness of information in this document.
--- OUTSIDE RECORDS SUMMARY | 2023-09-01 08:19 | XMS_ITS | CCD ---
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 Name Role Phone REGGIE, DR GARCIA Attending [...] LE Attending Unavailable Vern Le Attending Provider Vern Le Attending Unavailable Vern Le Admitting Unavailable Allergies Allergy Classification Reported Allergen(s) Allergy Type Date of Onset Reaction(s) Facility (1 source) Latex Drug allergy (disorder) [facility] Repository (3 sources) Codeine; Translations: [codeine] Drug Allergy [facility] (3 sources) Penicillin; Translations: [penicillin] Drug Allergy [facility] Medications Current Medications Medication Drug Class(es) Dates Sig (Normalized) Sig (Original) azithromycin 500 mg oral tablet (1 source) Macrolide Antimicrobial Start: 05-29-2023 End: 06-03-2023 take 1 tablet by mouth once daily Zithromax 500 mg oral tablet 500 mg = 1 tab(s), Oral, Daily, X 5 day(s), # 5 tab(s), Refills(s) 0, Pharmacy: [facility] #[id number], 170, cm, 05/29/23 15:13:00 EDT, Height/Length Dosing, 75.8, kg, 05/29/23 15:13:00 EDT, Weight Dosing Start Date: 05/29/23 Stop Date: 06/03/23 Status: Ordered brompheniramine maleate 0.4 mg/ml / dextromethorphan hydrobromide 2 mg/ml / pseudoephedrine hydrochloride 6 mg/ml oral solution (1 source) alpha-Adrenergic Agonist, Uncompetitive C-votluh-B-aspartat e Receptor Antagonist, Sigma-1 Agonist Start: 09-21-2022 End: 09-28-2022 take 10 mL by mouth four times daily for cough and congestion Bromfed DM oral syrup 10 mL, Oral, QID for cough and congestion for 7 day(s), 240 mL, Refill(s) 0, [facility] #[id number], 165, cm, 09/21/22 13:09:00 EST, Height/Length Dosing, [...] day(s), # 5 tab(s), Refills(s) 0, Pharmacy: [facility] #[id number], 170, cm, 05/29/23 15:13:00 EDT, Height/Length Dosing, [...] [id number] Received: 08/24/23 Status: LAWRENCE Ugarte Num: [id number] Spec Type: Surgical Subm Dr: Vern Le Tissues: A Endometrium - Biopsy (EMB) Procedures: HE/2, Gross/Micro L4 Age/ Patient Sex Location Account Attending Physician Sommer Cerna 37/F [facility] [id number] Vern Le SPEC NUM: [id number] RECD: 08/24/23 STATUS: LAWRENCE UGARTE NUM: [id number] MARÍA: 08/23/23 DR: Vern Le ENTERED: 08/24/23 [facility] DR: Eddy,Lab SPEC TYPE: Surgical DEPT: BERT [...] in one cassette labeled A1. CPT Codes 25825 ---- ---- Specimen: [id number] Received: 08/24/23 Status: LAWRENCE Ugarte Num: [id number] Spec Type: Surgical Subm Dr: Vern Le Tissues: A Endometrium - Biopsy (EMB) Procedures: HE/2, Gross/Micro L4 ---- Patient: Sommer Cerna [id number] (Continued) ---- Signed (signature on file) Danie Garcia MD 08/27/23 [id number] [facility] Family Medicine Office/Clini c Noteon 06-01-2023 Family [...] day(s), # 5 tab(s), Refills(s) 0, Pharmacy: [facility] #[id number], 170, cm, 05/29/23 15:13:00 EDT, Height/Length Dosing, 75.8, kg, 05/29/23 15:13:00 EDT, Weight Dosing 2. Sore throat (J02.9: Acute pharyngitis, unspecified) Ordered: predniSONE, 20 mg = 1 tab(s), Oral, Daily, X 5 day(s), # 5 tab(s), Refills(s) 0, Pharmacy: [facility] #[id number], 170, cm, 05/29/23 15:13:00 EDT, Height/Length Dosing, 75.8, kg, 05/29/23 15:13:00 EDT, Weight Dosing Follow-up With When Contact Information Cesar KAUFFMAN, MARIOLA Verduzco Additional Instructions: Patient Education Sore Throat, Vzth-kd-Clqf Tonsillitis, Fium-gc-Xmca Problem List/Past Medical History Ongoing Sore throat [...] chart was completed and signed on 05/29/2023. [facility] Comment on above: Result Comment: Elec [...] agree with above documented HPI by medical reimbursement manager. Portions of this record may have been created with voice recognition artificial intelligence software, specifically [employer], [employer] and or [employer]. Substitutions may have occurred due to the inherent limitations of voice recognition and artificial intelligence software. 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 Patient was given a prescription for Zithromax and prednisone, instructed take kbgr-luq-lkhhxww Tylenol for any body aches, fevers, or headaches. Drink plenty water to stay hydrated. Declined a work excuse note. 1. Tonsillitis (J03.90: Acute tonsillitis, unspecified) See above Ordered: azithromycin, 500 mg = 1 tab(s), Oral, Daily, X 5 day(s), # 5 tab(s), Refills(s) 0, Pharmacy: [facility] #[id number], 170, cm, 05/29/23 15:13:00 EDT, Height/Length Dosing, 75.8, kg, 05/29/23 15:13:00 EDT, Weight Dosing 2. Sore throat (J02.9: Acute pharyngitis, unspecified) See above Ordered: predniSONE, 20 mg = 1 tab(s), Oral, Daily, X 5 day(s), # 5 tab(s), Refills(s) 0, Pharmacy: [facility] #[id number], 170, cm, 05/29/23 15:13:00 EDT, Height/Length Dosing, 75.8, kg, 05/29/23 15:13:00 EDT, Weight Dosing Follow-up With When Contact Information Cesar KUAFFMAN, MARIOLA Verduzco Additional Instructions: Patient Education Sore Throat, Tjft-ob-Ypwq Tonsillitis, Rgri-yp-Ffjo Problem List/Past Medical History Ongoing Sore throat [...] Beata (more content not included)... Normal Ira[facility] Comment on above: Result Comment: Elec [...] these instructions at home: Medicines ? 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 ? Do not share cups, bottles, or [...] provider. Document Revised: 12/16/2021 Document Reviewed: 12/16/2021 [employer] Patient Education ? 2022 [employer] Infectious Disease Sore Throat When you [...] these instructions at home: Medicines ? Take ehmp-zev-miydfyy and prescription medicines only as told by [...] night. ? (more content not included)... Normal [facility] Ambulatory Visit Summaryon 0 09-21-2022 Ambulatory Visit [...] Acute nasopharyngitis Duration: 7 Days Pickup at [facility] #[id number] Unchanged ibuprofen (ibuprofen 800 mg Tab) 1 Tablets By Mouth 3 times a day as needed for for pain Contact prescribing physician if questions or concerns Unchanged sumatriptan (Imitrex 25 mg Tab) 1 Tablets By Mouth Every day Contact prescribing physician if questions or concerns Pharmacy Information [facility] #[id number]: [address] [place], [place] [phone] Medications and Immunizations Administered Not Given influenza [...] to help relieve symptoms, such as: ? Urmr-ygy-sselqoj cold medicines. ? Cough suppressants. Coughing is [...] other clear broths. General instructions ? Take tapy-soi-zibfblj and prescription medicines only (more content not included)... 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 Vyyx-vxf-agyhchs cold medicines. ? Cough suppressants. Coughing is [...] other clear broths. General instructions ? Take xvcq-vez-vwtgkdk and prescription medicines only as told by [...] and water are not available, use hand road machine operator. ? Avoid touching your mouth, face, eyes, [...] common infecti (more content not included)... Normal [facility] PAP ACOG PANEL 2: 30 to 65on 12-20-2021 . . Normal [facility] Comment on above: Result Comment: Perf ormed at: WB Performed By: #### [id number] #### [facility] [address] [place] [address] Dr. Victoriano Baker Age Gdln ACOG Testing 30-65 Normal [facility] Comment on above: Performed By: #### 4 [id number] #### [facility] [address] [address] [address] Victoriano Baker DIAGNOSIS: Comment Normal [facility] Comment on above: Result Comment: NEGA TIVE FOR INTRAEPITHELIAL LESION OR MALIGNANCY. Performed at: WB Performed By: #### 4 [id number] #### [facility] [address] [address] [address] Victoriano Baker HPV Aptima Negative Normal Negative [facility] Comment on above: Result Comment: This nucleic acid amplification test detects fourteen high-risk HPV types (16,18,31,33,35,39,45,51,52,56,58,59,66,68) without differentiation. Performed at: =G Performed By: #### 4 [id number] #### [facility] [address] [address] [address] Victoriano Baker Methodology: Comment Normal [facility] Comment on above: Result Comment: This liquid based ThinPrep(R) pap test was screened with the use of an image guided system. Performed at: WB Performed By: #### 4 [id number] #### [facility] [address] [address] [address] Victoriano Baker Note: Comment Normal [facility] Comment on above: Result Comment: The Pap smear is a screening test designed to aid in the detection of premalignant and malignant conditions of the uterine cervix. It is not a diagnostic procedure and should not be used as the sole means of detecting cervical cancer. Both false-positive and false-negative reports do occur. . Performed at: WB Performed By: #### 4 [id number] #### [facility] [address] [place] [address] Dr. Victoriano Baker Performed by: Comment Normal [facility] Comment on above: Result Comment: Lashonda Ha, Nanotechnology Engineering Technician (ASCP) Performed at: WB Performed By: #### 4 [id number] #### [facility] [address] [place] [address] Dr. Victoriano Baker Specimen adequacy: Comment Normal [facility] Comment on above: Result Comment: Sati sfactory for evaluation. Endocervical and/or squamous metaplastic cells (endocervical component) are present. Performed at: WB Performed By: #### 4 [id number] #### [facility] [address] [place] [address] Dr. Victoriano Baker URon 12-28-2020 , QUAL Negative Normal NEGATIVE [facility] Comment on above: Performed By: #### P REGU #### [facility] [address] [place] [address] Lenin Novoa Covid-19 PCR (CVDTB)on 12-06 SARS-CoV-2 (COVID-19) RNA JENI+probe Ql (Unsp spec) Not detected Normal NOT DETECTED [facility] Comment on above: Result Comment: This test is not yet approved or cleared by the [place] FDA. When there are no FDA-approved or cleared tests available, and other criteria are met, FDA can make tests available under an emergency access mechanism called an Emergency Use Authorization (EUA). The EUA for this test is supported by the Circulation Assistant of Health and Human Service's (HHS's) declaration [...] consistent with SARS-CoV-2. Performed By: #### C [facility] #### [facility] [address] [address] Lenin Novoa Vital Signs Date Time Vital Sign Value Performing Clinician Facility 05-29-2023 15:10-0400 Blood Pressure Location [facility] 05-29-2023 15:10-0400 Diastolic blood pressure 80 mm[Hg] [facility] 05-29-2023 15:10-0400 Heart rate 80 /min [facility] 05-29-2023 15:10-0400 SaO2% (BldA) [Mass fraction] 99 % [facility] 05-29-2023 15:10-0400 Systolic blood pressure 130 mm[Hg] [place] [facility] 09-21-2022 13:06-0500 Blood Pressure Location [facility] 09-21-2022 13:06-0500 Body temperature 98.42 [degF] Leeanna Ambric [facility] 09-21-2022 13:06-0500 Diastolic blood pressure 86 mm[Hg] [facility] 09-21-2022 13:06-0500 Heart rate 87 /min Rochelle Ambric [facility] 09-21-2022 13:06-0500 SaO2% (BldA) [Mass fraction] 97 % Leeanna Orzech [facility] 09-21-2022 13:06-0500 Systolic blood pressure 136 mm[Hg] Leeanna Orzech [facility] Encounters Encounter Date Encounter Type Care Provider Facility Start: 08-24-2023 End: 08-24-2023 ambulatory Vern Rey Facility:[facility] Start: 08-24-2023 End: 08-24-2023 ambulatory Vern Rey Work Phone: [facility] Work Phone: Start: 08-24-2023 End: 08-24-2023 Departed Referred Vern Rey Work Phone: [facility] Start: 08-23-2023 End: 08-23-2023 ambulatory VERN REY Not Available Start: 05-29-2023 ambulatory MARCELLO HARDEN Facilit y:[facility] Start: 05-29-2023 ambulatory MARCELLO HARDEN Facilit y:[facility] Start: 05-29-2023 End: 05-29-2023 Patient encounter procedure MARCELLO HARDEN [facility] Start: 09-21-2022 End: 09-22-2022 ambulatory Leeanna X Orzech Facility:[facility] Start: 09-21-2022 End: 09-21-2022 Patient encounter procedure Leeanna X Orzech [facility] Start: 12-14-2021 End: 12-14-[address] RADHA PAREDES Facility:[facility] Start: 12-31-2020 Encounter for preprocedural laboratory examination DR RADHA PAREDES [facility] Start: 12-28-2020 End: 12-28-[address] RADHA PAREDES Facility:[facility] Start: 12-25-2020 End: 12-26-[address] RADHA PAREDES Facility:[facility] Start: 12-25-2020 End: 12-26-2020 Encounter for preprocedural laboratory examination DR RADHA PAREDES Facility:[facility] Immunizations Immunization Date Immunization Notes Care Provider Corrine arlet 06-09-2010 influenza virus vaccine, unspecified formulation MARCELLO HARDEN [facility] NEGATED: Highlighted row has not occurred!05-29-2023 influenza virus vaccine, unspecified formulation [facility] NEGATED: Highlighted row has not occurred!05-29-2023 SARS-CoV-2 mRNA (tozinameran 5y-11y) vaccine [facility] NEGATED: Highlighted row has not occurred!09-21-2022 influenza virus vaccine, unspecified formulation Leeanna Dahl [facility] Payers Date Payer Category Payer Self-pay 2022 Unknown [id number] 1985 Unknown [id number] 2.16.84 [id number] 1987 Unknown [id number] 2.16.84 [id number] 1987 Unknown [id number] 2.16.84 [id number] 1987 Unknown [id number] 2.16.8 [id number] 1987 Unknown [id number] 2.16.8 [id number] 1987 Unknown [id number] 2.16.84 [id number] 1959 Unknown [id number] Medicaid [employer] [id number] Unknown [id number] 2.16.8 [id number] Social History Date Type Detail Facility Start: 09-21-2022 End: 05-29-2023 Tobacco smoking status Ex-smoker (finding) [facility] Tobacco smoking status Never Mary [facility] At Female [facility] Start: 1985 Sex Assigned At Female [facility] Functional Status Date Assessment Result Facility 05-29-2023 Functional Status N/A [facility] 09-21-2022 Functional Status N/A [facility] Hospital Discharge instructions 05-29-2023 Note Date & Type Note Facility 05-29-2023 Hospital Discharg e instructions Patient Education 05/29/2023 16:36:14 Sore Throat, Ikyo-fb-Hggl Sore Throat When you have a sore [...] Follow these instructions at home: Medicines Take sjeo-awc-gxrcbvv and prescription medicines only as told by [...] and water are not available, use hand road machine operator. Contact a doctor if: You have a [...] things can cause a sore throat. Take mrvd-muv-wjedwrk medicines only as told by your doctor. [...] provider. Document Revised: 10/20/2021 Document Reviewed: 10/20/2021 [employer] Patient Education 2022 [employer] 05/29/2023 16:36:09 Tonsillitis, Kpdn-iq-Hgiv Tonsillitis Tonsillitis is an infection of the [...] Follow these instructions at home: Medicines Take tgbj-bkh-fwzpsot and prescription medicines only as told by [...] is no soap and water, use hand road machine operator. Do not share cups, bottles, or other [...] provider. Document Revised: 12/16/2021 Document Reviewed: 12/16/2021 [employer] Patient Education 2022 [email or web address]. Follow Up Care 05/29/2023 14:00:55 With:Cesar KAUFFMAN, MARIOLA Verduzco Address:Unknown When: Unknown [facility] Hospital Discharge instructions 09-21-2022 [...] medicines to help relieve symptoms, such as: Owbv-xph-muwavrm cold medicines. Cough suppressants. Coughing is a [...] and other clear broths. General instructions Take twrl-qer-hczxgls and prescription medicines only as told by [...] and water are not available, use hand road machine operator. ?Avoid touching your mouth, face, eyes, or [...] 01/17/2002 Document Revised: 08/01/2019 Document Reviewed: 03/09/2018 [employer] Patient Education 2020 [email or web address]. 09/21/2022 13:39:03 BMI for Adults BMI for [...] height. This can be done either in [place]ian ([place] or metric measurements. Note that charts are available to help you find your BMI quickly and easily without having to do these calculations yourself. To calculate your BMI in [place]ian ([place] measurements, your health care provider will: [...] medical problems. BMI can be measured using Estonian measurements or metric measurements. To interpret your [...] 04/04/2005 Document Revised: 07/06/2018 Document Reviewed: 06/06/2018 [employer] Patient Education 2020 [email or web address]. Follow Up Care 09/21/2022 12:25:29 With:Cesar KAUFFMAN, MARIOLA Verduzco Address:Unknown When: Unknown [facility] Evaluation + Plan note Note Date & Type Note Facility Evaluation + Plan note No data available for this section [facility] Evaluation note Note Date & Type Note Facility Evaluation note [facility] Progress note Note Date & Type Note Facility Progress note No data available for this section [facility] Summary Purpose Family History [...] CREATED AUTHOR AUTHOR'S ORGANIZ ATION 06/03/2023 [facility] DATE CREATED AUTHOR AUTHOR'S ORGANIZ ATION 08/24/2023 [facility] DATE CREATED AUTHOR AUTHOR'S ORGANIZ ATION 08/27/2023 [facility] Patient Care team informatio n (unrecognized section [...] BE BASED ON THE PRIMARY CLINICAL RECORDS. [employer] [facility]. provides no warranty or guarantee of the accuracy or completeness of information in this document.
== END 2023-08-23 00:01 | disposition home or self-care (01) ==
LOC: LAB
PROVIDERS: Visit Provider Obstetrics & Gynecology
DX: N92.0 Excessive and frequent menstruation with regular cycle (principal); N93.9 Abnormal uterine and vaginal bleeding, unspecified
CPT/HCPCS: 88305

== ENCOUNTER 2023-09-07 10:12 | Outpatient (OUT) | payer OTHER, SELFPAY ==
--- OUTSIDE RECORDS SUMMARY | 2023-09-07 10:29 | XMS_ITS | CCD ---
Author Name Unknown Address [address] [place] [address] Organization [facility] Care Team Providers Care Customs Appraiser Name Role Phone REGGIE, DR GARCIA Attending [...] LE Attending Unavailable Vern Le Attending Provider [phone] Vern Le Attending Unavailable Vern Le Admitting Unavailable Allergies Allergy Classification Reported Allergen(s) Allergy Type Date of Onset Reaction(s) Facility (1 source) Latex Drug allergy (disorder) [facility] Repository (3 sources) Codeine; Translations: [codeine] Drug Allergy [facility] (3 sources) Penicillin; Translations: [penicillin] Drug Allergy [facility] Medications Current Medications Medication Drug Class(es) Dates Sig (Normalized) Sig (Original) azithromycin 500 mg oral tablet (1 source) Macrolide Antimicrobial Start: 05-29-2023 End: 06-03-2023 take 1 tablet by mouth once daily Zithromax 500 mg oral tablet 500 mg = 1 tab(s), Oral, Daily, X 5 day(s), # 5 tab(s), Refills(s) 0, Pharmacy: [facility] #[id number], 170, cm, 05/29/23 15:13:00 EDT, Height/Length Dosing, 75.8, kg, 05/29/23 15:13:00 EDT, Weight Dosing Start Date: 05/29/23 Stop Date: 06/03/23 Status: Ordered brompheniramine maleate 0.4 mg/ml / dextromethorphan hydrobromide 2 mg/ml / pseudoephedrine hydrochloride 6 mg/ml oral solution (1 source) alpha-Adrenergic Agonist, Uncompetitive A-xgjogw-G-aspartat e Receptor Antagonist, Sigma-1 Agonist Start: 09-21-2022 End: 09-28-2022 take 10 mL by mouth four times daily for cough and congestion Bromfed DM oral syrup 10 mL, Oral, QID for cough and congestion for 7 day(s), 240 mL, Refill(s) 0, [facility] #[id number], 165, cm, 09/21/22 13:09:00 EST, Height/Length Dosing, [...] day(s), # 5 tab(s), Refills(s) 0, Pharmacy: [facility] #[id number], 170, cm, 05/29/23 15:13:00 EDT, Height/Length Dosing, [...] [id number] Received: 08/24/23 Status: LAWRENCE Ugarte Num: [id number] Spec Type: Surgical Subm Dr: Vern Le Tissues: A Endometrium - Biopsy (EMB) Procedures: HE/2, Gross/Micro L4 Age/ Patient Sex Location Account Attending Physician Sommer Cerna 37/F [facility] [id number] Vern Le SPEC NUM: [id number] RECD: 08/24/23 STATUS: LAWRENCE UGARTE NUM: [id number] MARÍA: 08/23/23 DR: Vern Le ENTERED: 08/24/23 [facility] DR: Eddy,Lab SPEC TYPE: Surgical DEPT: BERT [...] in one cassette labeled A1. CPT Codes 56170 ---- ---- Specimen: [id number] Received: 08/24/23 Status: LAWRENCE Ugarte Num: [id number] Spec Type: Surgical Subm Dr: Vern Le Tissues: A Endometrium - Biopsy (EMB) Procedures: HE/2, Gross/Micro L4 ---- Patient: Sommer Cerna [id number] (Continued) ---- Signed (signature on file) Danie Garcia MD 08/27/23 3425 [facility] [...] day(s), # 5 tab(s), Refills(s) 0, Pharmacy: [facility] #[id number], 170, cm, 05/29/23 15:13:00 EDT, Height/Length Dosing, 75.8, kg, 05/29/23 15:13:00 EDT, Weight Dosing 2. Sore throat (J02.9: Acute pharyngitis, unspecified) Ordered: predniSONE, 20 mg = 1 tab(s), Oral, Daily, X 5 day(s), # 5 tab(s), Refills(s) 0, Pharmacy: [facility] #[id number], 170, cm, 05/29/23 15:13:00 EDT, Height/Length Dosing, 75.8, kg, 05/29/23 15:13:00 EDT, Weight Dosing Follow-up With When Contact Information Cesar KAUFFMAN, MARIOLA Verduzco Additional Instructions: Patient Education Sore Throat, Mbze-di-Rnlr Tonsillitis, Tyta-zz-Grxg Problem List/Past Medical History Ongoing Sore throat [...] chart was completed and signed on 05/29/2023. [facility] Comment on above: Result Comment: Elec tronically [...] and agree with above documented HPI by emergency medical service manager. Portions of this record may have been created with voice recognition artificial intelligence software, specifically [employer], walkby and or [employer]. Substitutions may have occurred due to the inherent limitations of voice recognition and artificial intelligence software. 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 Patient was given a prescription for Zithromax and prednisone, instructed take rzra-sky-mzsvzjv Tylenol for any body aches, fevers, or headaches. Drink plenty water to stay hydrated. Declined a work excuse note. 1. Tonsillitis (J03.90: Acute tonsillitis, unspecified) See above Ordered: azithromycin, 500 mg = 1 tab(s), Oral, Daily, X 5 day(s), # 5 tab(s), Refills(s) 0, Pharmacy: [facility] #[id number], 170, cm, 05/29/23 15:13:00 EDT, Height/Length Dosing, 75.8, kg, 05/29/23 15:13:00 EDT, Weight Dosing 2. Sore throat (J02.9: Acute pharyngitis, unspecified) See above Ordered: predniSONE, 20 mg = 1 tab(s), Oral, Daily, X 5 day(s), # 5 tab(s), Refills(s) 0, Pharmacy: [facility] #[id number], 170, cm, 05/29/23 15:13:00 EDT, Height/Length Dosing, 75.8, kg, 05/29/23 15:13:00 EDT, Weight Dosing Follow-up With When Contact Information Cesar KAUFFMAN, MARIOLA Verduzco Additional Instructions: Patient Education Sore Throat, Bygd-hg-Zmuu Tonsillitis, Msgv-dm-Lckn Problem List/Past Medical History Ongoing Sore throat [...] Beata (more content not included)... Normal [facility] Comment on above: Result Comment: Elec [...] these instructions at home: Medicines ? Take epdb-fhe-yrdowvv and prescription medicines only as told by [...] is no soap and water, use hand card room manager. ? Do not share cups, bottles, or [...] provider. Document Revised: 12/16/2021 Document Reviewed: 12/16/2021 [employer] Patient Education ? 2022 [employer] Infectious Disease Sore Throat When you [...] these instructions at home: Medicines ? Take pnnm-qjd-hfhksej and prescription medicines only as told by [...] night. ? (more content not included)... Normal [facility] Ambulatory Visit Summaryon 0 09-21-2022 Ambulatory Visit [...] Acute nasopharyngitis Duration: 7 Days Pickup at [facility] #[id number] Unchanged ibuprofen (ibuprofen 800 mg Tab) 1 Tablets By Mouth 3 times a day as needed for for pain Contact prescribing physician if questions or concerns Unchanged sumatriptan (Imitrex 25 mg Tab) 1 Tablets By Mouth Every day Contact prescribing physician if questions or concerns Pharmacy Information [facility] #[id number]: [address] [place], [place] [id number] [phone] Medications and Immunizations Administered Not Given influenza [...] to help relieve symptoms, such as: ? Tpdo-oaj-vuztbbm cold medicines. ? Cough suppressants. Coughing is [...] other clear broths. General instructions ? Take gfos-ifp-cvofvgn and prescription medicines only (more content not included)... Normal [facility] Family Medicine Office/Clini c Noteon 09-21-2022 Family Medicine Office/Clinic Note Chief Complaint HEAD OF MOBILE sore throat HPI Staff Sommer is a [...] for 7 day(s), 240 mL, Refill(s) 0, [facility] #[id number], 165, cm, 09/21/22 13:09:00 EST, Height/Length Dosing, [...] Acute pharyngitis, unspecified) Ordered: Rapid Strep POC 67279 Follow-up With When Contact Information Cesar KAUFFMAN, [...] Strep POC Result: Negative (09/21/22 13:35:00) Normal [facility] Comment on above: Result Comment: [...] to help relieve symptoms, such as: ? Dubx-vqj-imvwnjf cold medicines. ? Cough suppressants. Coughing is [...] other clear broths. General instructions ? Take spbk-uwo-ycvfmzv and prescription medicines only as told by [...] and water are not available, use hand card room manager. ? Avoid touching your mouth, face, eyes, [...] common infecti (more content not included)... Normal [facility] PAP ACOG PANEL 2: 30 to 65on 12-20-2021 . . Normal [facility] Comment on above: Result Comment: Perf ormed at: WB Performed By: #### [id number] #### [facility] [address] [place] [address] Dr. Victoriano Baker Age Gdln ACOG Testing 30-65 Normal [facility] Comment on above: Performed By: #### [id number] #### [facility] [address] [address] [address] Victoriano Baker DIAGNOSIS: Comment Normal [facility] Comment on above: Result Comment: NEGA TIVE FOR INTRAEPITHELIAL LESION OR MALIGNANCY. Performed at: WB Performed By: #### [id number] #### [facility] [address] [address] [address] Victoriano Baker HPV Aptima Negative Normal Negative [facility] Comment on above: Result Comment: This nucleic acid amplification test detects fourteen high-risk HPV types (16,18,31,33,35,39,45,51,52,56,58,59,66,68) without differentiation. Performed at: =G Performed By: #### 4 [id number] #### [facility] [address] [address] [address] Victoriano Baker Methodology: Comment Normal [facility] Comment on above: Result Comment: This liquid based ThinPrep(R) pap test was screened with the use of an image guided system. Performed at: WB Performed By: #### 4 [id number] #### [facility] [address] [address] [address] Victoriano Baker Note: Comment Normal [facility] Comment on above: Result Comment: The Pap smear is a screening test designed to aid in the detection of premalignant and malignant conditions of the uterine cervix. It is not a diagnostic procedure and should not be used as the sole means of detecting cervical cancer. Both false-positive and false-negative reports do occur. . Performed at: WB Performed By: #### [id number] #### [facility] [address] [place] [address] Dr. Victoriano Baker Performed by: Comment Normal [facility] Comment on above: Result Comment: Lashonda Ha, Lathe Hand (ASCP) Performed at: WB Performed By: #### [id number] #### [facility] [address] [place] [address] Dr. Victoriano Baker Specimen adequacy: Comment Normal [facility] Comment on above: Result Comment: Sati sfactory for evaluation. Endocervical and/or squamous metaplastic cells (endocervical component) are present. Performed at: WB Performed By: #### [id number] #### [facility] [address] [place] [address] Dr. Victoriano Baker URon 12-28-2020 , QUAL Negative Normal NEGATIVE [facility] Comment on above: Performed By: #### P REGU #### [facility] [address] [place] [address] Lenin Novoa Covid-19 PCR (CVDTB)on 12-06 SARS-CoV-2 (COVID-19) RNA JENI+probe Ql (Unsp spec) Not detected Normal NOT DETECTED [facility] Comment on above: Result Comment: This test is not yet approved or cleared by the [place] FDA. When there are no FDA-approved or cleared tests available, and other criteria are met, FDA can make tests available under an emergency access mechanism called an Emergency Use Authorization (EUA). The EUA for this test is supported by the [place] [employer] of Health and Human Service's (HHS's) declaration [...] consistent with SARS-CoV-2. Performed By: #### [facility] #### [facility] [address] [address] Lenin Novoa Vital Signs Date Time Vital Sign Value Performing Clinician Facility 05-29-2023 15:10-0400 Blood Pressure Location [facility] 05-29-2023 15:10-0400 Diastolic blood pressure 80 mm[Hg] [facility] 05-29-2023 15:10-0400 Heart rate 80 /min [facility] 05-29-2023 15:10-0400 SaO2% (BldA) [Mass fraction] 99 % [facility] 05-29-2023 15:10-0400 Systolic blood pressure 130 mm[Hg] [place] [facility] 09-21-2022 13:06-0500 Blood Pressure Location [facility] 09-21-2022 13:06-0500 Body temperature 98.42 [degF] [facility] 09-21-2022 13:06-0500 Diastolic blood pressure 86 mm[Hg] [facility] 09-21-2022 13:06-0500 Heart rate 87 /min [place] [facility] 09-21-2022 13:06-0500 SaO2% (BldA) [Mass fraction] 97 % Leeanna Orzech [facility] 09-21-2022 13:06-0500 Systolic blood pressure 136 mm[Hg] Leeanna Orzech [facility] Encounters Encounter Date Encounter Type Care Provider Facility Start: 08-24-2023 End: 08-24-2023 ambulatory Vern Rey Facility:[facility] Start: 08-24-2023 End: 08-24-2023 ambulatory Vern Rey Work Phone: [facility] Work Phone: Start: 08-24-2023 End: 08-24-2023 Departed Referred Vern Rey Work Phone: [facility] Start: 08-23-2023 End: 08-23-2023 ambulatory VERN REY Not Available Start: 05-29-2023 ambulatory MARCELLO HARDEN Facilit y:[facility] Start: 05-29-2023 ambulatory MARCELLO HARDEN Facilit y:[facility] Start: 05-29-2023 End: 05-29-2023 Patient encounter procedure MARCELLO HARDEN [facility] Start: 09-21-2022 End: 09-22-2022 ambulatory Leeanna X Orzech Facility:[facility] Start: 09-21-2022 End: 09-21-2022 Patient encounter procedure Leeanna [facility] Start: 12-14-2021 End: 12-14-[address] RADHA PAREDES Facility:[facility] Start: 12-31-2020 Encounter for preprocedural laboratory examination DR RADHA PAREDES [facility] Start: 12-28-2020 End: 12-28-[address] RADHA PAREDES Facility:[facility] Start: 12-25-2020 End: 12-26-[address] RADHA PAREDES Facility:[facility] Start: 12-25-2020 End: 12-26-2020 Encounter for preprocedural laboratory examination DR RADHA PAREDES Facility:[facility] Immunizations Immunization Date Immunization Notes Care Provider Corrine arlet 06-09-2010 influenza virus vaccine, unspecified formulation MARCELLO HARDEN [facility] NEGATED: Highlighted row has not occurred!05-29-2023 influenza virus vaccine, unspecified [facility] NEGATED: Highlighted row has not occurred!05-29-2023 SARS-CoV-2 mRNA (tozinameran 5y-11y) vaccine [facility] NEGATED: Highlighted row has not occurred!09-21-2022 influenza virus vaccine, unspecified formulation Leeanna Dahl [facility] Payers Date Payer Category Payer Self-pay 2022 Unknown [id number] 1987 Unknown [id number] 2.16.84 [id number] 1987 Unknown [id number] 2.16.84 [id number] 1987 Unknown [id number] 2.16.84 [id number] 1987 Unknown [id number] 2.16.8 [id number] 1987 Unknown [id number] 2.16.8 [id number] 1987 Unknown [id number] 2.16.84 [id number] 1959 Unknown [id number] Medicaid [employer] [id number] Unknown [id number] 2.16.8 [id number] Social History Date Type Detail Facility Start: 09-21-2022 End: 05-29-2023 Tobacco smoking status Ex-smoker (finding) [facility] Tobacco smoking status Never [facility] Sex Assigned At Female [facility] Start: 1985 Sex Assigned At Female [facility] Functional Status Date Assessment Result Facility 05-29-2023 Functional Status N/A [facility] 09-21-2022 Functional Status N/A [facility] Hospital Discharge instructions 05-29-2023 Note Date & Type Note Facility 05-29-2023 Hospital Discharg e instructions Patient Education 05/29/2023 16:36:14 Sore Throat, Dwcs-yn-Vdni Sore Throat When you have a sore [...] Follow these instructions at home: Medicines Take tsny-uji-ixjxfwl and prescription medicines only as told by [...] and water are not available, use hand card room manager. Contact a doctor if: You have a [...] things can cause a sore throat. Take dyxf-zwf-qnuisnx medicines only as told by your doctor. [...] provider. Document Revised: 10/20/2021 Document Reviewed: 10/20/2021 [employer] Patient Education 2022 [employer] 05/29/2023 16:36:09 Tonsillitis, Answ-le-Gqzk Tonsillitis Tonsillitis is an infection of the [...] Follow these instructions at home: Medicines Take jhnl-tte-tapuvvy and prescription medicines only as told by [...] is no soap and water, use hand card room manager. Do not share cups, bottles, or other [...] provider. Document Revised: 12/16/2021 Document Reviewed: 12/16/2021 [employer] Patient Education 2022 [employer]. Follow Up Care 05/29/2023 14:00:55 With:Cesar KAUFFMAN, MARIOLA Verduzco Address:Unknown When: Unknown [facility] Discharge instructions 09-21-2022 Note [...] medicines to help relieve symptoms, such as: Kvkl-tzq-hoszlnd cold medicines. Cough suppressants. Coughing is a [...] and other clear broths. General instructions Take cazw-fwn-tfcpinl and prescription medicines only as told by [...] and water are not available, use hand card room manager. ?Avoid touching your mouth, face, eyes, or [...] 01/17/2002 Document Revised: 08/01/2019 Document Reviewed: 03/09/2018 [employer] Patient Education 2020 [employer]. 09/21/2022 13:39:03 BMI for Adults BMI for [...] height. This can be done either in [place]ese ([place] or metric measurements. Note that charts are available to help you find your BMI quickly and easily without having to do these calculations yourself. To calculate your BMI in [place]ese ([place] measurements, your health care provider will: [...] medical problems. BMI can be measured using Taiwanese measurements or metric measurements. To interpret your [...] 04/04/2005 Document Revised: 07/06/2018 Document Reviewed: 06/06/2018 [employer] Patient Education 2020 [employer]. Follow Up Care 09/21/2022 12:25:29 With:Cesar KAUFFMAN, MARIOLA Verduzco Address:Unknown When: Unknown [facility] Evaluation + Plan note Note Date & Type Note Facility Evaluation + Plan note No data available for this section [facility] Evaluation note Note Date & Type Note Facility Evaluation note [facility] Progress note Note Date & Type Note Facility Progress note No data available for this section [facility] Summary Purpose Family History No [...] CREATED AUTHOR AUTHOR'S ORGANIZ ATION 06/03/2023 [facility] DATE CREATED AUTHOR AUTHOR'S ORGANIZ ATION 08/24/2023 [facility] DATE CREATED AUTHOR AUTHOR'S ORGANIZ ATION 08/27/2023 [facility] Patient Care team informatio n (unrecognized section [...] BE BASED ON THE PRIMARY CLINICAL RECORDS. [employer] [facility]. provides no warranty or guarantee of the accuracy or completeness of information in this document.
== END 2023-09-07 10:13 | disposition home or self-care (01) ==
LOC: PST 10:14
PROVIDERS: Visit Provider Obstetrics & Gynecology
DX: Z01.818 Encounter for other preprocedural examination (principal); Z30.2 Encounter for sterilization; N92.0 Excessive and frequent menstruation with regular cycle; N93.9 Abnormal uterine and vaginal bleeding, unspecified; R10.2 Pelvic and perineal pain

== ENCOUNTER 2023-09-22 06:06 | Day surgery (SDC) | payer OTHER, SELFPAY ==
[2023-09-07 10:35] VITALS: BP 130/80; PULSE 67; RESP 14; TEMP 36.2; O2SAT 99; BMI 26.9
[2023-09-22] VITALS (11 sets, daily range): BP systolic 86–134; BP diastolic 49–88; PULSE 65–106; RESP 12–22; TEMP 36.3–36.6; O2SAT 98–100; BMI 26.4
--- OUTSIDE RECORDS SUMMARY | 2023-09-22 06:10 | XMS_ITS | CCD ---
Author Name Unknown Address [address] [place] [address] Organization [facility] Care Team Providers Care Photogrammetric Technician Name Role Phone REGGIE, DR GARCIA Attending [...] (1 source) Latex Drug allergy (disorder) [facility] Repository (3 sources) Codeine; Translations: [codeine] Drug Allergy [facility] (3 sources) Penicillin; Translations: [penicillin] Drug Allergy [facility] Medications Current Medications Medication Drug Class(es) Dates Sig (Normalized) Sig (Original) azithromycin 500 mg oral tablet (1 source) Macrolide Antimicrobial Start: 05-29-2023 End: 06-03-2023 take 1 tablet by mouth once daily Zithromax 500 mg oral tablet 500 mg = 1 tab(s), Oral, Daily, X 5 day(s), # 5 tab(s), Refills(s) 0, Pharmacy: [facility] #[id number], 170, cm, 05/29/23 15:13:00 EDT, Height/Length Dosing, 75.8, kg, 05/29/23 15:13:00 EDT, Weight Dosing Start Date: 05/29/23 Stop Date: 06/03/23 Status: Ordered brompheniramine maleate 0.4 mg/ml / dextromethorphan hydrobromide 2 mg/ml / pseudoephedrine hydrochloride 6 mg/ml oral solution (1 source) alpha-Adrenergic Agonist, Uncompetitive D-diwwgg-C-aspartat e Receptor Antagonist, Sigma-1 Agonist Start: 09-21-2022 End: 09-28-2022 take 10 mL by mouth four times daily for cough and congestion Bromfed DM oral syrup 10 mL, Oral, QID for cough and congestion for 7 day(s), 240 mL, Refill(s) 0, [facility] #[id number], 165, cm, 09/21/22 13:09:00 EST, Height/Length Dosing, [...] day(s), # 5 tab(s), Refills(s) 0, Pharmacy: [facility] #[id number], 170, cm, 05/29/23 15:13:00 EDT, Height/Length Dosing, [...] [id number] Received: 08/24/23 Status: LAWRENCE Ugarte Num: [id number] Spec Type: Surgical Subm Dr: Vern Le Tissues: A Endometrium - Biopsy (EMB) Procedures: HE/2, Gross/Micro L4 Age/ Patient Sex Location Account Attending Physician Sommer Cerna 37/F [facility] [id number] Vern Le SPEC NUM: [id number] RECD: 08/24/23 STATUS: LAWRENCE UGARTE NUM: [id number] MARÍA: 08/23/23 DR: Vern Le ENTERED: 08/24/[address]: Eddy,Lab SPEC TYPE: Surgical DEPT: BERT [...] in one cassette labeled A1. CPT Codes 32711 ---- ---- Specimen: [id number] Received: 08/24/23 Status: LAWRENCE Ugarte Num: [id number] Spec Type: Surgical Subm Dr: Vern Le Tissues: A Endometrium - Biopsy (EMB) Procedures: HE/2, Gross/Micro L4 ---- Patient: Sommer Cerna [id number] (Continued) ---- Signed (signature on file) Danie Garcia MD 08/27/23 [id number] [facility] Family Medicine Office/Clini c Noteon 06-01-2023 [...] day(s), # 5 tab(s), Refills(s) 0, Pharmacy: [facility] #[id number], 170, cm, 05/29/23 15:13:00 EDT, Height/Length Dosing, 75.8, kg, 05/29/23 15:13:00 EDT, Weight Dosing 2. Sore throat (J02.9: Acute pharyngitis, unspecified) Ordered: predniSONE, 20 mg = 1 tab(s), Oral, Daily, X 5 day(s), # 5 tab(s), Refills(s) 0, Pharmacy: [facility] #[id number], 170, cm, 05/29/23 15:13:00 EDT, Height/Length Dosing, 75.8, kg, 05/29/23 15:13:00 EDT, Weight Dosing Follow-up With When Contact Information Cesar KAUFFMAN, MARIOLA Verduzco Additional Instructions: Patient Education Sore Throat, Ycch-bn-Tjkq Tonsillitis, Okxf-wa-Zetb Problem List/Past Medical History Ongoing Sore throat [...] completed and signed on 05/29/2023. [facility] Comment on above: Result Comment: Elec tronically [...] agree with above documented HPI by medical chemist. Portions of this record may have been created with voice recognition artificial intelligence software, specifically [employer], [employer] and or [employer]. Substitutions may have occurred due to the inherent limitations of voice recognition and artificial intelligence software. 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 Patient was given a prescription for Zithromax and prednisone, instructed take rmtq-epi-hwdasto Tylenol for any body aches, fevers, or headaches. Drink plenty water to stay hydrated. Declined a work excuse note. 1. Tonsillitis (J03.90: Acute tonsillitis, unspecified) See above Ordered: azithromycin, 500 mg = 1 tab(s), Oral, Daily, X 5 day(s), # 5 tab(s), Refills(s) 0, Pharmacy: [facility] #[id number], 170, cm, 05/29/23 15:13:00 EDT, Height/Length Dosing, 75.8, kg, 05/29/23 15:13:00 EDT, Weight Dosing 2. Sore throat (J02.9: Acute pharyngitis, unspecified) See above Ordered: predniSONE, 20 mg = 1 tab(s), Oral, Daily, X 5 day(s), # 5 tab(s), Refills(s) 0, Pharmacy: [facility] #[id number], 170, cm, 05/29/23 15:13:00 EDT, Height/Length Dosing, 75.8, kg, 05/29/23 15:13:00 EDT, Weight Dosing Follow-up With When Contact Information Cesar KAUFFMAN, MARIOLA Verduzco Additional Instructions: Patient Education Sore Throat, Ynjy-aj-Hkjw Tonsillitis, Nypm-uk-Ukac Problem List/Past Medical History Ongoing Sore throat [...] Beata (more content not included)... Normal Iraheta [facility] Comment on above: Result Comment: Elec tronically [...] these instructions at home: Medicines ? Take xxeu-klr-xmijlkt and prescription medicines only as told by [...] is no soap and water, use hand hospice bereavement coordinator. ? Do not share cups, bottles, or [...] provider. Document Revised: 12/16/2021 Document Reviewed: 12/16/2021 [employer] Patient Education ? 2022 [employer] Infectious Disease Sore Throat When you [...] these instructions at home: Medicines ? Take bdcm-rrh-ujitgtr and prescription medicines only as told by [...] night. ? (more content not included)... Normal [facility] Ambulatory Visit Summaryon 0 09-21-2022 Ambulatory Visit [...] Acute nasopharyngitis Duration: 7 Days Pickup at [facility] #[id number] Unchanged ibuprofen (ibuprofen 800 mg Tab) 1 Tablets By Mouth 3 times a day as needed for for pain Contact prescribing physician if questions or concerns Unchanged sumatriptan (Imitrex 25 mg Tab) 1 Tablets By Mouth Every day Contact prescribing physician if questions or concerns Pharmacy Information [facility] #[id number]: [address] [place], [place] [id number] [phone] Medications and Immunizations Administered Not Given influenza [...] to help relieve symptoms, such as: ? Jxbx-nst-rwkrtge cold medicines. ? Cough suppressants. Coughing is [...] other clear broths. General instructions ? Take menc-ntv-hmeurkh and prescription medicines only (more content not included)... 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 Qtta-mor-nlghiov cold medicines. ? Cough suppressants. Coughing is [...] other clear broths. General instructions ? Take hluq-hli-oavzque and prescription medicines only as told by [...] and water are not available, use hand hospice bereavement coordinator. ? Avoid touching your mouth, face, eyes, [...] common infecti (more content not included)... Normal [facility] PAP ACOG PANEL 2: 30 to 65on 12-20-2021 . . Normal [facility] Comment on above: Result Comment: Perf ormed at: WB Performed By: #### [id number] #### [facility] [address] [place] [address] Dr. Victoriano Baker Age Gdln ACOG Testing 30-65 Normal [facility] Comment on above: Performed By: #### [id number] #### [facility] [address] [address] [address] Victoriano Baker DIAGNOSIS: Comment Normal [facility] Comment on above: Result Comment: NEGA TIVE FOR INTRAEPITHELIAL LESION OR MALIGNANCY. Performed at: WB Performed By: #### [id number] #### [facility] [address] [address] [address] Victoriano Baker HPV Aptima Negative Normal Negative [facility] Comment on above: Result Comment: This nucleic acid amplification test detects fourteen high-risk HPV types (16,18,31,33,35,39,45,51,52,56,58,59,66,68) without differentiation. Performed at: =G Performed By: #### 4 [id number] #### [facility] [address] [address] [address] Victoriano Baker Methodology: Comment Normal [facility] Comment on above: Result Comment: This liquid based ThinPrep(R) pap test was screened with the use of an image guided system. Performed at: WB Performed By: #### 4 [id number] #### [facility] [address] [address] [address] Victoriano Baker Note: Comment Normal [facility] Comment on above: Result Comment: The Pap smear is a screening test designed to aid in the detection of premalignant and malignant conditions of the uterine cervix. It is not a diagnostic procedure and should not be used as the sole means of detecting cervical cancer. Both false-positive and false-negative reports do occur. . Performed at: WB Performed By: #### 4 [id number] #### [facility] [address] [place] [address] Dr. Victoriano Baker Performed by: Comment Normal [facility] Comment on above: Result Comment: Lashonda Ha, [employer] Aging Director (ASCP) Performed at: WB Performed By: #### [id number] #### [facility] [address] [place] [address] Dr. Victoriano Baker Specimen adequacy: Comment Normal [facility] Comment on above: Result Comment: Sati sfactory for evaluation. Endocervical and/or squamous metaplastic cells (endocervical component) are present. Performed at: WB Performed By: #### 4 [id number] #### [facility] [address] [place] [address] Dr. Victoriano Baker URon 12-28-2020 , QUAL Negative Normal NEGATIVE [facility] Comment on above: Performed By: #### P REGU #### [facility] [address] [place] [address] Lenin Novoa Covid-19 PCR (CVDTB)on 12-06 SARS-CoV-2 (COVID-19) RNA JENI+probe Ql (Unsp spec) Not detected Normal NOT DETECTED [facility] Comment on above: Result Comment: This test is not yet approved or cleared by the [place] FDA. When there are no FDA-approved or cleared tests available, and other criteria are met, FDA can make tests available under an emergency access mechanism called an Emergency Use Authorization (EUA). The EUA for this test is supported by the Health Insurance Specialist of Health and Human Service's (HHS's) declaration [...] consistent with SARS-CoV-2. Performed By: #### C [facility] #### [facility] [address] [address] Lenin Novoa Vital Signs Date Time Vital Sign Value Performing Clinician Facility 05-29-2023 15:10-0400 Blood Pressure Location [facility] 05-29-2023 15:10-0400 Diastolic blood pressure 80 mm[Hg] [facility] 05-29-2023 15:10-0400 Heart rate 80 /min [facility] 05-29-2023 15:10-0400 SaO2% (BldA) [Mass fraction] 99 % [facility] 05-29-2023 15:10-0400 Systolic blood pressure 130 mm[Hg] [facility] 09-21-2022 13:06-0500 Blood Pressure Location [employer] [facility] 09-21-2022 13:06-0500 Body temperature 98.42 [degF] Leeanna [employer] [facility] 09-21-2022 13:06-0500 Diastolic blood pressure 86 mm[Hg] [employer] [facility] 09-21-2022 13:06-0500 Heart rate 87 /min [place] [employer] [facility] 09-21-2022 13:06-0500 SaO2% (BldA) [Mass fraction] 97 % Leeanna Orzech [facility] 09-21-2022 13:06-0500 Systolic blood pressure 136 mm[Hg] Leeanna Orzech [facility] Encounters Encounter Date Encounter Type Care Provider Facility Start: 08-24-2023 End: 08-24-2023 ambulatory Vern Rey Facility:[facility] Start: 08-24-2023 End: 08-24-2023 ambulatory Vern Rey Work Phone: [facility] Work Phone: Start: 08-24-2023 End: 08-24-2023 Departed Referred Vern Rey Work Phone: [facility] Start: 08-23-2023 End: 08-23-2023 ambulatory VERN REY Not Available Start: 05-29-2023 ambulatory MARCELLO HARDEN Facilit y:[facility] Start: 05-29-2023 ambulatory MARCELLO HARDEN Facilit y:[facility] Start: 05-29-2023 End: 05-29-2023 Patient encounter procedure MARCELLO HARDEN [facility] Start: 09-21-2022 End: 09-22-2022 ambulatory Leeanna X Orzech Facility:[facility] Start: 09-21-2022 End: 09-21-2022 Patient encounter procedure Leeanna X Orzech [facility] Start: 12-14-2021 End: 12-14-[address] RADHA PAREDES Facility:[facility] Start: 12-31-2020 Encounter for preprocedural laboratory examination DR RADHA PAREDES [facility] Start: 12-28-2020 End: 12-28-[address] RADHA PAREDES Facility:[facility] Start: 12-25-2020 End: 12-26-[address] RADHA PAREDES Facility:[facility] Start: 12-25-2020 End: 12-26-2020 Encounter for preprocedural laboratory examination DR RADHA PAREDES Facility:[facility] Immunizations Immunization Date Immunization Notes Care Provider Corrine arlet 06-09-2010 influenza virus vaccine, unspecified formulation MARCELLO HARDEN [facility] NEGATED: Highlighted row has not occurred!05-29-2023 influenza virus vaccine, unspecified [facility] NEGATED: Highlighted row has not occurred!05-29-2023 SARS-CoV-2 mRNA (tozinameran 5y-11y) vaccine [facility] NEGATED: Highlighted row has not occurred!09-21-2022 influenza virus vaccine, unspecified formulation Leeanna Dahl [facility] Payers Date Payer Category Payer Self-pay 2022 Unknown [id number] 1987 Unknown [id number] 2.16.84 [id number] 1987 Unknown [id number] 2.16.84 [id number] 1987 Unknown [id number] 2.16.84 [id number] 1987 Unknown [id number] 2.16.8 [id number] 1987 Unknown [id number] 2.16.8 [id number] 1987 Unknown [id number] 2.16.84 [id number] 1959 Unknown [id number] Medicaid [employer] [id number] Unknown [id number] 2.16.8 [id number] Social History Date Type Detail Facility Start: 09-21-2022 End: 05-29-2023 Tobacco smoking status Ex-smoker (finding) [facility] Tobacco smoking status Never [facility] Sex Assigned At Female [facility] Start: 1985 Sex Assigned At Female [facility] Functional Status Date Assessment Result Facility 05-29-2023 Functional Status N/A [facility] 09-21-2022 Functional Status N/A [facility] Hospital Discharge instructions 05-29-2023 Note Date & Type Note Facility 05-29-2023 Hospital Discharg e instructions Patient Education 05/29/2023 16:36:14 Sore Throat, Gzoa-qy-Olbz Sore Throat When you have a sore [...] Follow these instructions at home: Medicines Take bkdo-hbz-wojwsiy and prescription medicines only as told by [...] and water are not available, use hand hospice bereavement coordinator. Contact a doctor if: You have a [...] things can cause a sore throat. Take lcox-soe-lintcwa medicines only as told by your doctor. [...] provider. Document Revised: 10/20/2021 Document Reviewed: 10/20/2021 [employer] Patient Education 2022 [employer] 05/29/2023 16:36:09 Tonsillitis, Ztgz-si-Rxzj Tonsillitis Tonsillitis is an infection of the [...] Follow these instructions at home: Medicines Take espz-akl-bvwayzo and prescription medicines only as told by [...] is no soap and water, use hand hospice bereavement coordinator. Do not share cups, bottles, or other [...] provider. Document Revised: 12/16/2021 Document Reviewed: 12/16/2021 [employer] Patient Education 2022 [employer]. Follow Up Care 05/29/2023 14:00:55 With:Cesar KAUFFMAN, MARIOLA Verduzco Address:Unknown When: Unknown [facility] Discharge instructions 09-21-2022 Note [...] medicines to help relieve symptoms, such as: Lqhl-cav-nbrzjjr cold medicines. Cough suppressants. Coughing is a [...] and other clear broths. General instructions Take pazb-wvf-ycjajpg and prescription medicines only as told by [...] and water are not available, use hand hospice bereavement coordinator. ?Avoid touching your mouth, face, eyes, or [...] 01/17/2002 Document Revised: 08/01/2019 Document Reviewed: 03/09/2018 [employer] Patient Education 2020 [employer]. 09/21/2022 13:39:03 BMI for Adults BMI for [...] height. This can be done either in [place] ([place] or metric measurements. Note that charts are available to help you find your BMI quickly and easily without having to do these calculations yourself. To calculate your BMI in Malaysian ([place] measurements, your health care provider will: [...] medical problems. BMI can be measured using Malaysian measurements or metric measurements. To interpret your [...] 04/04/2005 Document Revised: 07/06/2018 Document Reviewed: 06/06/2018 [employer] Patient Education 2020 [employer]. Follow Up Care 09/21/2022 12:25:29 With:Cesar KAUFFMAN, MARIOLA Verduzco Address:Unknown When: Unknown [facility] Evaluation + Plan note Note Date & Type Note Facility Evaluation + Plan note No data available for this section [facility] Evaluation note Note Date & Type Note Facility Evaluation note [facility]: Progress note Note Date & Type Note Facility Progress note No data available for this section [facility] Summary Purpose Family History No [...] CREATED AUTHOR AUTHOR'S ORGANIZ ATION 06/03/2023 Iraheta Forrest [facility] DATE CREATED AUTHOR AUTHOR'S ORGANIZ ATION 08/24/2023 [facility] DATE CREATED AUTHOR AUTHOR'S ORGANIZ ATION 08/27/2023 [facility] Patient Care team informatio n (unrecognized [...] BE BASED ON THE PRIMARY CLINICAL RECORDS. [facility]. provides no warranty or guarantee of the accuracy or completeness of information in this document.
[2023-09-22 06:21] LABS: Basophils Absolute Auto 0.1 10^3/uL (0.0-0.1); Basophils Percent Auto 1.4 % (0.2-2.0); Eosinophils Absolute Auto 0.1 10^3/uL (0.0-0.7); Eosinophils Percent Auto 1.7 % (0.9-7.0); Hemoglobin 13.2 g/dL (12.0-16.0); Immature Granulocytes Abs Auto 0.01 10^3/uL (0.00-0.03); Immature Granulocytes Pct Auto 0.1 % (0.0-0.5); Lymphocytes Absolute Auto 2.3 10^3/uL (1.2-3.8); Lymphocytes Percent Auto 31.5 % (20.5-60.0); Mean Corpuscular Volume 90.9 fL (81.0-99.0); Mean Platelet Volume 8.7 fL (9.5-13.5); Monocytes Absolute Auto 0.8 10^3/uL (0.3-0.8); Monocytes Percent Auto 10.8 % (1.7-12.0); Neutrophils Absolute Auto 3.9 10^3/uL (1.4-6.5); Neutrophils Percent Auto 54.5 % (43.0-75.0); Platelet Count 290 10^3/uL (150-450); White Blood Count 7.2 10^3/uL (4.0-11.0)
[2023-09-22 06:37] LABS: HCG Quantitative <1 mIU/mL
[2023-09-22] MEDS: LACTATED RINGER'S SOLUTION 1,000 ML 50 ML IV (06:55)
--- NOTE | 2023-09-22 09:08 | P.ON_ITS ---
Brief Operative Note Date of procedure: 09/22/23 Pre-op diagnosis: menorrhagia, desires permanent sterilization Post-op diagnosis: same as pre-op Procedure: NAME OF PROCEDURE: robotic assisted Laparoscopic bilateral salpingectomy, Hysteroscopy without Nilda endometrial ablation Findings-boggy adenomyotic appearing uterus, small uterine cavity unable to perform ablation due to its size. normal appearing ovaries, and tubes. PROCEDURE: The patient was taken back to the OR where she was prepped and draped in the normal sterile fashion after being placed in the dorsal lithotomy position, after being placed under general anesthesia without difficulty. a weighted speculum was then placed into the vagina. Pap and endometrial bx were performed without difficultyThe anterior lip was grasped with a single tooth tenaculum. The patient was then sounded to approximatley 7cm. The patient was gently sounded using Hegar dilators and the hysteroscope was passed through the cervix into the uterus where both ostia were seen. No gross evidence of polyps, fibroids or malignancy. The nilda ablation could not be performed due to small uterine cavity size The nilda portion was aborted, also due to possible comp romise of the cavity intergrity of uterus A wet sponge stick was placed into the patient's vagina. Attention was then turned to the patient's abdomen, where a scalpel was used to make a small infrau mbilical incision. The S retractors were then used to dissect the underlying layers until the fascia could be seen. The fascia was then grasped with Fariba clamps and tented up. A knife was then used to make a small incision to the fascia. The muscle was identified, at that time two sutures of #0 Vicryl on a GI needlewas then used and placed through the fascia. The peritoneum was then identified and entered bluntly. The 10-4 Victor Manuel was then placed into the patient's abdomen. This was confirmed with direct visualization of the bowel, using the laparoscope. The patient's abdomen was then insufflated using approximately 4 liters of CO2 gas. Survey of the patient's abdomen demonstrated normal appearing ovaries, uterus and tubes. A second and third lateral robotic ports, which was 8mm in size, was then placed laterally after incision was made in the skin under direct visualization. the robotic arms were engaged. The patient's tube on the patient's right side was identified. The tube was then tented up using a grasper. The ligasure was used to transect and coagulate the mesosalpingx from the fimbriated end to the insertion at the uterus, the tube was amputated and removed in its entirety.? Excellent hemostasis was noted. ?This was performed on the contralateral sideas well. The lateral ports were then moved under direct visualization with excellent hemostasis. The abdomen was deinsufflated. All instruments were removed from the patient's abdomen. The fascia was closed using the #0 Vicryl on GI needle. The skin was closed using 4- 0 Vicryl subcuticularly. All instruments were removed from the patient's vagina as well. The patient was taken out of the dorsal lithotomy position and placed in the supine position and taken to recovery in stable condition. Sponge, lap and needle counts were correct x2. ??? Anesthesia: ALTHEA Surgeon: Justen Le Veterinary Surgeon: Arianne Valdes Estimated blood loss (mL): 5 Pathology: none sent Condition: stable Disposition: PACU Urinary Catheter Management Urinary Catheter Management Urethral: Cath placed during this visit: no
[2023-09-22] MEDS: LACTATED RINGER'S SOLUTION 1,000 ML 125 ML IV (09:14)
[2023-09-22] MEDS: MEPERIDINE HCL/PF 25 MG/ML VIAL IVP (09:43)
[2023-09-22] MEDS: HYDROCODONE/ACET 5-325 MG TABLET 1 TAB PO (09:51)
--- NOTE | 2023-09-22 10:05 | PC.NURSE ---
Medicated with Demerol IV as ordered
--- NOTE | 2023-09-22 10:10 | PC.NURSE ---
Medicated with oral pain medication as ordered
--- NOTE | 2023-09-22 10:30 | PC.NURSE ---
Dressing removed using sterile technique and pressure applied to site; no active drainage noted; 4x4 and opsite applied to site; procedure tolerated well; other 2 dressings dry; peripad dry
== END 2023-09-22 11:45 | disposition home or self-care (01) ==
PROVIDERS: Visit Provider Obstetrics & Gynecology
PROC: (CPT 840; principal; 2023-09-22 07:30)
PROC: (CPT 840; 2023-09-22 07:30)
DX: Z30.2 Encounter for sterilization (principal); N92.0 Excessive and frequent menstruation with regular cycle; N93.9 Abnormal uterine and vaginal bleeding, unspecified; R10.2 Pelvic and perineal pain
CPT/HCPCS: 58555; 58661; 36415; 84702; 85025; 88302; J1094; J2704